=== PATIENT | female | born 1955 | race Caucasian/White ===

== ENCOUNTER → 2020-09-22 09:49 | Outpatient (BNVA) | payer MEDICAID, SELFPAY | PROVIDERS: PCP Internal Medicine Geriatric Medicine; Referring Provider Internal Medicine Geriatric Medicine; Visit Provider Student in an Organized Health Care Education/Training Program | DX: R76.8 Other specified abnormal immunological findings in serum (principal); M25.50 Pain in unspecified joint | CPT/HCPCS: 99202 ==

== ENCOUNTER 2020-09-24 09:03 | Outpatient (REF) | payer MEDICAID, SELFPAY ==
--- NOTE | 2020-09-24 09:10 | XR_ITS ---
EXAMINATION: BILATERAL HANDS. CLINICAL INFORMATION: Bilateral hand pain. COMPARISON: None TECHNIQUE: 4 views each hand. FINDINGS: RIGHT HAND: There is no visible acute fracture, dislocation or subluxation seen. The soft tissues are normal. LEFT HAND: There is no visible acute fracture, dislocation or subluxation seen. There is no abnormal joint effusion. No bony erosive changes. XR/XR hand wrist LT IMPRESSION: Unremarkable bilateral hand exam.
--- NOTE | 2020-09-24 09:10 | XR_ITS ---
EXAMINATION: BILATERAL HANDS. CLINICAL INFORMATION: Bilateral hand pain. COMPARISON: None TECHNIQUE: 4 views each hand. FINDINGS: RIGHT HAND: There is no visible acute fracture, dislocation or subluxation seen. The soft tissues are normal. LEFT HAND: There is no visible acute fracture, dislocation or subluxation seen. There is no abnormal joint effusion. No bony erosive changes. XR/XR hand wrist RT IMPRESSION: Unremarkable bilateral hand exam.
--- NOTE | 2020-09-24 09:10 | XR_ITS ---
EXAMINATION: XR THORACOLUMBAR SPINE CLINICAL INFORMATION: Low back pain. COMPARISON: None TECHNIQUE: 3 views. FINDINGS: There is maintained thoracic kyphosis. There is minimal dextroscoliosis mid dorsal spine. No intrinsic bony abnormality. The disc heights and neural foramina are well maintained. The endplates and posterior elements are normal. No fracture or subluxation. The surrounding prevertebral soft tissues are unremarkable. XR/XR thoracic spine 2V IMPRESSION: No compression fractures or subluxations are identified. The disc spaces are preserved. No endplate changes are seen. The prevertebral soft tissues are normal. The foramina are patent.
[2020-09-24 10:22] LABS: MANUAL DIFF FLAG NO
[2020-09-24 10:32] LABS: Basophils Absolute Auto 0.1 X10*3/uL (0.0-0.2); Basophils Percent Auto 1.4 % (0-2); Eosinophils Absolute Auto 0.2 X10*3/uL (0.0-0.4); Eosinophils Percent Auto 3.3 % (0-4); Hematocrit 39.7 % (37-47); Imm Gran Abs Auto 0.01 X10*3/uL (0.00-0.03); Imm Gran Pct Auto 0.2 % (0.0-0.4); Lymphocytes Absolute Auto 1.8 X10*3/uL (1.2-4.9); Lymphocytes Percent Auto 37.5 % (20-40); Mean Corpuscular HGB Conc 32.7 g/dl (31.0-35.0); Mean Corpuscular Hemoglobin 30.2 pg (27.0-33.0); Mean Corpuscular Volume 92.1 fL (80-98); Mean Platelet Volume 11.3 fL (9.4-12.3); Monocytes Absolute Auto 0.4 X10*3/uL (0.1-1.2); Monocytes Percent Auto 8.4 % (2-11); Neutrophils Absolute Auto 2.4 X10*3/uL (2.0-8.3); Neutrophils Percent Auto 49.2 % (45-73); Platelet Count 222 X10*3/uL (160-400); Red Blood Count 4.31 X10*6/uL (4.20-5.50); Red Cell Distribution Width 14.2 % (11.0-16.0); White Blood Count 4.9 X10*3/uL (4.8-10.8)
[2020-09-24 10:52] LABS: Glucose Urine UA NEG (NEG); Leukocyte Esterase Urine NEG (NEG); Nitrite Urine NEG (NEG); Urine Blood NEG (NEG); Urine Ketones NEG (NEG); Urine Protein NEG (NEG-TRACE)
[2020-09-24 10:55] LABS: Appearance Urine CLEAR; Color Urine YELLOW
[2020-09-24 11:00] LABS: Mucus Urine TRACE /LPF; RBC Urine 0-2 /HPF (0); Renal Epithelial Cells Urine TRACE /LPF; Squamous Epithelial Cell Urine TRACE /LPF; WBC Urine 0-2 /HPF (0-4)
[2020-09-24 11:11] LABS: Erythrocyte Sedimentation Rate 9 MM/HR (0-20)
[2020-09-24 11:13] LABS: Alanine Aminotransferase 31 U/L (0-31); Albumin Level 4.2 g/dL (3.5-5.0); Alkaline Phosphatase 67 U/L (39-117); Anion Gap 9 (12-20); Aspartate Amino Transferase 22 U/L (5-31); Bilirubin Total 0.8 mg/dL (0.0-1.0); Blood Urea Nitrogen 12 mg/dL (9-16); C Reactive Protein 0.13 mg/dL (< or = 0.50); Calcium 8.7 mg/dL (8.4-10.2); Carbon Dioxide 28 mmol/L (22-29); Chloride 107 mmol/L (96-108); Estimated Glomerular Filt Rate > 60; Glucose Random 104 mg/dL (60-115); Potassium 4.2 mmol/l (3.3-5.1); Rheumatoid Factor < 15.0 IU/mL (<15.0); Sodium 140 mmol/L (135-145); Total Protein 7.4 g/dL (6.5-8.0)
[2020-09-24 11:34] LABS: Thyroid Stimulating Hormone 1.17 mIU/mL (0.32-4.0)
[2020-09-25 11:42] LABS: Thyroglobulin Antibodies 1 IU/mL (< or = 1); Thyroid Peroxidase Antibodies 8 IU/mL (<9)
[2020-09-25 13:11] LABS: Anti DNA DS Antibody 9 IU/mL; Antibody to SS-A Antigen <1.0 NEG AI (<1.0 NEG); Antibody to SS-B Antigen <1.0 NEG AI (<1.0 NEG); SM/Ribonucleoprotein Ab <1.0 NEG AI (<1.0 NEG); Smith Protein <1.0 NEG AI (<1.0 NEG)
[2020-09-27 14:37] LABS: Complement C3 119 mg/dL (83-193)
[2020-09-28 00:17] LABS: Cyclic Citrullinated Peptide <16 UNITS
== END 2020-09-24 09:04 | disposition home or self-care (01) ==
LOC: HO.LAB 09:03
PROVIDERS: PCP Internal Medicine Geriatric Medicine; Visit Provider Student in an Organized Health Care Education/Training Program
DX: M25.50 Pain in unspecified joint (principal); R76.8 Other specified abnormal immunological findings in serum
CPT/HCPCS: 36415; 72070; 73110; 73130; 80053; 81001; 84443; 85025; 85652; 86038; 86039; 86140; 86160; 86200; 86225; 86235; 86376; 86431; 86800

== ENCOUNTER → 2020-11-10 09:26 | Outpatient (BNVA) | payer MEDICAID, SELFPAY | PROVIDERS: PCP Internal Medicine Geriatric Medicine; Referring Provider Internal Medicine Geriatric Medicine; Visit Provider Student in an Organized Health Care Education/Training Program | DX: Z76.89 Persons encountering health services in other specified circumstances (principal) ==

== ENCOUNTER 2021-03-18 12:11 | Outpatient (REF) | payer MEDICAID, SELFPAY ==
--- NOTE | ~2021-03-18 | XR_ITS ---
EXAMINATION: XR CERVICAL SPINE CLINICAL INFORMATION: Cervicalgia COMPARISON: None TECHNIQUE: 4 views FINDINGS: Straightening of the cervical curvature. Mild anterolisthesis of C4 on C5. No evidence of acute fracture. Mild cervical spondylosis including mild disc degeneration at C3-C4, C4-C5, C5-C6, C6-C7. Multilevel mild facet degeneration. Base of the dens appears intact. No suspicious findings in the lung apices. XR/XR cervical spine 3V IMPRESSION: Mild cervical spondylosis. No evidence of acute fracture.
== END 2021-03-18 12:12 | disposition home or self-care (01) ==
LOC: HO.XRAY 12:11
PROVIDERS: PCP Internal Medicine Geriatric Medicine; Visit Provider Emergency Medicine
DX: M54.2 Cervicalgia (principal)
CPT/HCPCS: 72040

== ENCOUNTER 2021-05-11 10:12 | Outpatient (REF) | payer MEDICAID, SELFPAY ==
--- NOTE | ~2021-05-11 | XR_ITS ---
EXAMINATION: XR WRIST, RIGHT XR WRIST, LEFT CLINICAL INFORMATION: Bilateral wrist pain COMPARISON: None TECHNIQUE: 3 views each wrist FINDINGS: Right Wrist: There is no visible acute fracture, dislocation or subluxation. No bony erosive changes seen. The carpometacarpal and intercarpal joint spaces are maintained normal. The radiocarpal joint space is normal as well. The soft tissues are unremarkable. Left Wrist: There is no visible acute fracture, dislocation or subluxation. The intercarpal and carpometacarpal joint spaces are maintained normal. The radiocarpal joint space is normal as well. XR/XR wrist RT 2V IMPRESSION: Unremarkable bilateral wrist exam. No bony erosive changes, fracture or subluxation.
--- NOTE | ~2021-05-11 | XR_ITS ---
EXAMINATION: XR WRIST, RIGHT XR WRIST, LEFT CLINICAL INFORMATION: Bilateral wrist pain COMPARISON: None TECHNIQUE: 3 views each wrist FINDINGS: Right Wrist: There is no visible acute fracture, dislocation or subluxation. No bony erosive changes seen. The carpometacarpal and intercarpal joint spaces are maintained normal. The radiocarpal joint space is normal as well. The soft tissues are unremarkable. Left Wrist: There is no visible acute fracture, dislocation or subluxation. The intercarpal and carpometacarpal joint spaces are maintained normal. The radiocarpal joint space is normal as well. XR/XR wrist LT 2V IMPRESSION: Unremarkable bilateral wrist exam. No bony erosive changes, fracture or subluxation.
[2021-05-11 11:32] LABS: MANUAL DIFF FLAG NO
[2021-05-11 11:40] LABS: Glucose Urine UA NEG (NEG); Leukocyte Esterase Urine NEG (NEG); Nitrite Urine NEG (NEG); Urine Blood TRACE (NEG); Urine Ketones NEG (NEG); Urine Protein NEG (NEG-TRACE)
[2021-05-11 11:41] LABS: Appearance Urine CLEAR; Color Urine YELLOW
[2021-05-11 11:44] LABS: Basophils Absolute Auto 0.1 X10*3/uL (0.0-0.2); Basophils Percent Auto 1.3 % (0-2); Eosinophils Absolute Auto 0.2 X10*3/uL (0.0-0.4); Eosinophils Percent Auto 2.9 % (0-4); Hematocrit 41.1 % (37-47); Hemoglobin 13.5 g/dl (12.0-16.0); Imm Gran Abs Auto 0.01 X10*3/uL (0.00-0.03); Imm Gran Pct Auto 0.2 % (0.0-0.4); Lymphocytes Absolute Auto 2.1 X10*3/uL (1.2-4.9); Lymphocytes Percent Auto 38.3 % (20-40); Mean Corpuscular HGB Conc 32.8 g/dl (31.0-35.0); Mean Corpuscular Hemoglobin 30.2 pg (27.0-33.0); Mean Corpuscular Volume 91.9 fL (80-98); Monocytes Absolute Auto 0.5 X10*3/uL (0.1-1.2); Monocytes Percent Auto 8.2 % (2-11); Neutrophils Absolute Auto 2.7 X10*3/uL (2.0-8.3); Neutrophils Percent Auto 49.1 % (45-73); Platelet Count 243 X10*3/uL (160-400); Red Blood Count 4.47 X10*6/uL (4.20-5.50); Red Cell Distribution Width 14.7 % (11.0-16.0); White Blood Count 5.5 X10*3/uL (4.8-10.8)
[2021-05-11 11:49] LABS: Hyaline Casts Urine 0-2 /LPF; Squamous Epithelial Cell Urine TRACE /LPF; WBC Urine 0-2 /HPF (0-4)
[2021-05-11 12:09] LABS: Alanine Aminotransferase 30 U/L (0-31); Albumin Level 4.3 g/dL (3.5-5.0); Alkaline Phosphatase 79 U/L (39-117); Anion Gap 11 (12-20); Aspartate Amino Transferase 23 U/L (5-31); Bilirubin Total 0.9 mg/dL (0.0-1.0); Blood Urea Nitrogen 12 mg/dL (9-16); C Reactive Protein 0.19 mg/dL (< or = 0.50); Calcium 9.6 mg/dL (8.4-10.2); Carbon Dioxide 27 mmol/L (22-29); Chloride 107 mmol/L (96-108); Estimated Glomerular Filt Rate > 60; Glucose Random 100 mg/dL (60-115); Potassium 4.5 mmol/L (3.3-5.1); Sodium 140 mmol/L (135-145); Total Protein 7.8 g/dL (6.5-8.0)
[2021-05-11 13:39] LABS: Erythrocyte Sedimentation Rate 10 MM/HR (0-20)
[2021-05-12 11:32] LABS: Complement C3 129 mg/dL (83-193)
[2021-05-12 11:56] LABS: Anti DNA DS Antibody 20 IU/mL; SM/Ribonucleoprotein Ab <1.0 NEG AI (<1.0 NEG); Smith Protein <1.0 NEG AI (<1.0 NEG)
== END 2021-05-11 10:13 | disposition home or self-care (01) ==
LOC: HO.LAB 10:12
PROVIDERS: PCP Internal Medicine Geriatric Medicine; Visit Provider Student in an Organized Health Care Education/Training Program
DX: R76.8 Other specified abnormal immunological findings in serum (principal); M25.50 Pain in unspecified joint
CPT/HCPCS: 36415; 73100; 80053; 81001; 85025; 85652; 86140; 86160; 86225; 86235; 99212

== ENCOUNTER 2021-06-01 09:00 | Outpatient (RCR) | payer MEDICAID, SELFPAY | END 2021-06-02 08:00 | disposition home or self-care (01) | LOC: HO.PT 09:00 | PROVIDERS: PCP Internal Medicine Geriatric Medicine; Visit Provider Internal Medicine Geriatric Medicine | DX: M54.2 Cervicalgia (principal); M54.5 Low back pain | CPT/HCPCS: 97012; 97110; 97112; 97140; 97162 ==

== ENCOUNTER 2021-06-30 07:26 | Outpatient (REF) | payer MEDICAID, SELFPAY ==
--- NOTE | ~2021-06-30 | MM_ITS ---
EXAMINATION: MM SCREENING DIGITAL BREAST TOMOSYNTHESIS, BILATERAL CLINICAL INFORMATION: Screening. Asymptomatic. The lifetime risk of breast cancer based on the Tyrer-Cuzick Model is 5%. COMPARISON: Mammography: 04/13/2020, 05/20/2019, 05/02/2018 TECHNIQUE: Digital breast tomosynthesis is performed in both the craniocaudal and mediolateral oblique views along with computer-aided detection (CAD). Synthesized 2D images are generated from the tomosynthesis. FINDINGS: The breasts are heterogeneously dense, which may obscure small masses (ACR BI-RADS breast composition Category c). There are no significant masses, abnormal calcifications, or other abnormalities. MM/MM tomosynthesis screening BI IMPRESSION: No mammographic evidence of malignancy. ASSESSMENT: BI-RADS 1: Negative RECOMMENDATION: Routine annual mammography screening. This patient's information was entered into a reminder system with a target due date for their next mammogram.
== END 2021-06-30 07:27 | disposition home or self-care (01) ==
LOC: HO.MAMMO 07:26
PROVIDERS: Visit Provider Internal Medicine Geriatric Medicine
DX: Z12.31 Encounter for screening mammogram for malignant neoplasm of breast (principal)
CPT/HCPCS: 77063; 77067

== ENCOUNTER 2021-07-22 10:13 | Outpatient (REF) | payer MEDICAID, SELFPAY ==
--- NOTE | ~2021-07-22 | XR_ITS ---
EXAMINATION: XR FOOT, BILATERAL CLINICAL INFORMATION: Bilateral foot pain. COMPARISON: Bilateral ankles 06/11/2020. TECHNIQUE: 3 views each foot. FINDINGS: No significant bone, joint or soft tissue abnormality is seen. XR/XR foot RT min 3V IMPRESSION: An etiology for the patient's bilateral foot pain has not been found.
--- NOTE | ~2021-07-22 | XR_ITS ---
EXAMINATION: XR FOOT, BILATERAL CLINICAL INFORMATION: Bilateral foot pain. COMPARISON: Bilateral ankles 06/11/2020. TECHNIQUE: 3 views each foot. FINDINGS: No significant bone, joint or soft tissue abnormality is seen. XR/XR foot LT min 3V IMPRESSION: An etiology for the patient's bilateral foot pain has not been found.
== END 2021-07-22 10:14 | disposition home or self-care (01) ==
LOC: HO.XRAY 10:13
PROVIDERS: PCP Internal Medicine Geriatric Medicine; Visit Provider Internal Medicine Geriatric Medicine
DX: M79.671 Pain in right foot (principal); M79.672 Pain in left foot
CPT/HCPCS: 73630

== ENCOUNTER 2021-08-08 10:15 | Outpatient (REF) | payer MEDICAID, SELFPAY ==
[2021-08-10 13:12] LABS: H Pylori Breath Test Positive (Negative)
== END 2021-08-08 10:16 | disposition home or self-care (01) ==
LOC: CF 10:15
PROVIDERS: Visit Provider Physician Assistant
DX: K21.9 Gastro-esophageal reflux disease without esophagitis (principal); K58.9 Irritable bowel syndrome, unspecified; Z87.891 Personal history of nicotine dependence
CPT/HCPCS: 36415; 83013; 99202; 99212

== ENCOUNTER → 2021-08-08 10:15 | Outpatient (BNVA) | payer MEDICAID, SELFPAY | PROVIDERS: PCP Internal Medicine Geriatric Medicine; Referring Provider Internal Medicine Geriatric Medicine; Visit Provider Physician Assistant | DX: K21.9 Gastro-esophageal reflux disease without esophagitis (principal); K58.9 Irritable bowel syndrome, unspecified | CPT/HCPCS: 99212 ==

== ENCOUNTER → 2022-02-06 09:36 | Outpatient (BNVA) | payer MEDICAID, SELFPAY | PROVIDERS: PCP Internal Medicine Geriatric Medicine; Referring Provider Internal Medicine Geriatric Medicine; Visit Provider Physician Assistant | DX: Z13.89 Encounter for screening for other disorder (principal) ==

== ENCOUNTER 2022-04-18 11:04 | Outpatient (REF) | payer MEDICAID, SELFPAY ==
--- NOTE | ~2022-04-18 | MM_ITS ---
EXAMINATION: BONE DENSITOMETRY CLINICAL INDICATION: Menopause. COMPARISON: Previous BD dated 11/16/2016 and baseline BD dated 04/05/2010. TECHNIQUE: Using a [employer] DXA System (software version: 13.1) manufactured by [employer], dual-energy x-ray absorptiometry was performed of the lumbar spine and left hip. The images are of good technical quality. Summary results are attached. FINDINGS: AP SPINE L1-L4: Current: BMD 0.921 g/cm2, Z-score -0.2, T-score -2.2, osteopenia, 4.4% increase from previous, 1.4% decrease from baseline (<5% change is not significant). Prior: BMD 0.882 g/cm2. Baseline: BMD 0.934 g/cm2. LEFT FEMUR, NECK: Current: BMD 0.753 g/cm2, Z-score -0.3, T-score -2.0, osteopenia. Prior: BMD 0.706 g/cm2. Baseline: BMD 0.765 g/cm2. LEFT FEMUR, TOTAL: Current: BMD 0.821 g/cm2, Z-score 0.0, T-score -1.5, osteopenia, 2.5% decrease from previous, 9.6% decrease from baseline (<5% change is not significant). Prior: BMD 0.842 g/cm2. Baseline: BMD 0.908 g/cm2. IDENTIFIED RISK FACTORS: Menopause, osteoporosis. HISTORY OF FRACTURE: None listed. MEDICATIONS: Calcium, vitamin D. MM/XR DEXA axial skeleton IMPRESSION: 1. DIAGNOSIS: Osteopenia based on the lowest T-score value of -2.2 in the lumbar spine applying World Health Organization criteria. 2. 10-YEAR FRACTURE RISK PREDICTION, FRAX: Major osteoporotic fracture (clinical spine, forearm, hip or shoulder) 6.1%. Hip fracture 1.0%. 3. Treatment Recommendations: NOF guidelines recommend consideration for treatment in postmenopausal women and men age 50 and older presenting with the following: -A hip or vertebral (clinical or morphometric) fracture. -T-score less than or equal to -2.5 at the femoral neck or spine after appropriate evaluation to exclude secondary causes. -Low bone mass at the hip or spine and a 10-year fracture probability by FRAX of greater than or equal to 3% for hip fracture or greater than or equal to 20% for major osteoporotic fracture based on the [place] adapted WHO algorithm. 4. Other Recommendations: All treatment decisions require clinical judgment and consideration of individual patient factors, including patient preferences, comorbidities, previous drug use, risk factors not captured in the FRAX model (e.g. frailty, falls, vitamin D deficiency, increased bone turnover, interval significant decline in bone density) and possible under or overestimation of fracture risk by FRAX. Additional medical evaluation for secondary cause of low bone mineral density may be appropriate. FUTURE SCAN RECOMMENDATION: People with diagnosed cases of osteoporosis or at high risk for fracture should have regular bone mineral density tests. For patients eligible for Medicare, routine testing is allowed once every 2 years. The testing frequency can be increased to one year for patients who have rapidly progressing disease, those who are receiving or discontinuing medical therapy to restore bone mass, or have additional risk factors.
== END 2022-04-18 11:05 | disposition home or self-care (01) ==
LOC: HO.MAMMO 11:04
PROVIDERS: Visit Provider Advanced Practice Midwife
DX: Z13.820 Encounter for screening for osteoporosis (principal); N95.9 Unspecified menopausal and perimenopausal disorder; Z78.0 Asymptomatic menopausal state
CPT/HCPCS: 77080

== ENCOUNTER 2022-08-01 12:16 | Outpatient (REF) | payer MEDICARE, MEDICAID, SELFPAY ==
--- NOTE | ~2022-08-01 | XR_ITS ---
EXAMINATION: XR BILATERAL HIP SERIES CLINICAL INFORMATION: Pain. COMPARISON: Pelvis x-ray August 2016. X-ray the left hip October 2007. TECHNIQUE: AP and lateral views of the right and left hips. FINDINGS: Right Hip: The hip joint and surrounding bone and soft tissues are normal. Left Hip: The hip joint and surrounding bone and soft tissues are normal. XR/XR hip RT min 2V IMPRESSION: Normal x-ray series of both hips.
--- NOTE | ~2022-08-01 | XR_ITS ---
EXAMINATION: XR BILATERAL HIP SERIES CLINICAL INFORMATION: Pain. COMPARISON: Pelvis x-ray August 2016. X-ray the left hip October 2007. TECHNIQUE: AP and lateral views of the right and left hips. FINDINGS: Right Hip: The hip joint and surrounding bone and soft tissues are normal. Left Hip: The hip joint and surrounding bone and soft tissues are normal. XR/XR hip LT min 2V IMPRESSION: Normal x-ray series of both hips.
== END 2022-08-01 12:17 | disposition home or self-care (01) ==
LOC: HO.XRAY 12:16
PROVIDERS: PCP Internal Medicine Geriatric Medicine; Visit Provider Internal Medicine Geriatric Medicine
DX: M25.551 Pain in right hip (principal); M25.552 Pain in left hip
CPT/HCPCS: 73502

== ENCOUNTER → 2022-10-16 09:11 | Outpatient (BNVA) | payer MEDICARE, MEDICAID, SELFPAY | PROVIDERS: PCP Internal Medicine Geriatric Medicine; Visit Provider Physician Assistant | DX: Z11.0 Encounter for screening for intestinal infectious diseases (principal) | CPT/HCPCS: 83013; 99211 ==

== ENCOUNTER 2022-10-16 16:22 | Outpatient (REF) | payer MEDICARE, MEDICAID, SELFPAY ==
[2022-10-17 11:43] LABS: H Pylori Breath Test Positive (Negative)
== END 2022-10-16 16:23 | disposition home or self-care (01) ==
LOC: HO.LNP 16:22
PROVIDERS: Visit Provider Physician Assistant
DX: Z13.89 Encounter for screening for other disorder (principal)
CPT/HCPCS: 83013

== ENCOUNTER → 2022-10-30 08:34 | Outpatient (BNVA) | payer OTHER, MEDICAID, SELFPAY | PROVIDERS: PCP Internal Medicine Geriatric Medicine; Visit Provider Physician Assistant | DX: K21.9 Gastro-esophageal reflux disease without esophagitis (principal); K58.9 Irritable bowel syndrome, unspecified; A04.8 Other specified bacterial intestinal infections | CPT/HCPCS: 99212 ==

== ENCOUNTER → 2022-12-25 09:07 | Outpatient (BNVA) | payer OTHER, SELFPAY | PROVIDERS: PCP Internal Medicine Geriatric Medicine; Visit Provider Physician Assistant | DX: A04.8 Other specified bacterial intestinal infections (principal) | CPT/HCPCS: 99212 ==

== ENCOUNTER → 2023-02-05 09:32 | Outpatient (BNVA) | payer OTHER, SELFPAY | PROVIDERS: PCP Internal Medicine Geriatric Medicine; Referring Provider Internal Medicine Geriatric Medicine; Visit Provider Physician Assistant | DX: K21.9 Gastro-esophageal reflux disease without esophagitis (principal); A04.8 Other specified bacterial intestinal infections; R19.4 Change in bowel habit | CPT/HCPCS: 99212 ==

== ENCOUNTER 2023-05-01 11:46 | Outpatient (REF) | payer OTHER, SELFPAY ==
--- NOTE | ~2023-05-01 | MM_ITS ---
EXAMINATION: MM SCREENING DIGITAL BREAST TOMOSYNTHESIS, BILATERAL CLINICAL INFORMATION: Screening. Asymptomatic. The lifetime risk of breast cancer based on the Tyrer-Cuzick Model is 5%. COMPARISON: Mammography: 06/30/2021, 04/13/2020, 05/20/2019 TECHNIQUE: Digital breast tomosynthesis is performed in both the craniocaudal and mediolateral oblique views along with computer-aided detection (CAD). Synthesized 2D images are generated from the tomosynthesis. FINDINGS: The breasts are heterogeneously dense, which may obscure small masses (ACR BI-RADS breast composition Category c). There are no significant masses, abnormal calcifications, or other abnormalities. There is a fine fibronodular parenchymal pattern is similar to prior exams. Scattered minor asymmetries are stable. No developing density or architectural abnormality. The axilla and skin contours are unremarkable. No significant changes. MM/MM tomosynthesis screening BI IMPRESSION: No mammographic evidence of malignancy. ASSESSMENT: BI-RADS 2: Benign RECOMMENDATION: Routine annual mammography screening. This patient's information was entered into a reminder system with a target due date for their next mammogram.
== END 2023-05-01 11:47 | disposition home or self-care (01) ==
LOC: HO.MAMMO 11:46
PROVIDERS: PCP Internal Medicine Geriatric Medicine; Visit Provider Advanced Practice Midwife
DX: Z12.31 Encounter for screening mammogram for malignant neoplasm of breast (principal)
CPT/HCPCS: 77063; 77067

== ENCOUNTER 2023-08-31 06:24 | Day surgery (SDC) | payer OTHER, SELFPAY ==
[2023-08-29 07:20] VITALS: BMI 21.9
--- NOTE | 2023-08-31 06:32 | MHC.SHP ---
Documented by User: Teri Martin MD 08/31/23 07:42 Pre-Procedural Eval Section A Date of Service: 08/31/23 Section B Chief Complaint: Gastro-esophageal reflux disease without esophagit Details of Present Illness: altered bowel habit Relevant Family History (Specify if Yes): No Relevant Social History: None Present Medications: see Short Stay Collaborative assessment Medical History: Significant History (h pylori) History of Previous Operations: Relevant previous surgery/procedure and date(s) (History of esophagogastroduodenoscopy (EGD) History of eye surgery Hx laparoscopic cholecystectomy Hx of colonoscopy) Allergies: Allergies Allergy/AdvReac Type Severity Reaction Status Date / Time No Known Allergies Allergy Verified 02/05/23 09:38 Review of Systems Sugical H&P ROS: Negative: Constitution, Cardiovascular, Respiratory, Neurological, Psychiatric, Hem-Onc, Allergic/Immunologic, Gastrointestinal, Genitourinary, Musculoskeletal, Integumentary, Endocrine and Eyes/Ears/Nose/Throat Exam Surgical H&P Exam: Normal: HEENT, Normal: Heart, Normal: Lungs, Normal: Extremities, Normal: Abdomen, Normal: Skin and Normal: Neurological Plan Diagnosis/Plan: Unchanged I have reviewed the history and physical and performed a pertinent physical examination on my patient. No changes have occurred unless specified. Time Spent With Patient Time: Total time managing care of this patient today ____ minutes. Documented by User: Malinda Magallon MD 08/31/23 07:12 Pre-Procedural Eval Section A Date of Service: 08/31/23 Section B Chief Complaint: Gastro-esophageal reflux disease without esophagit
[2023-08-31] MEDS: Lactated Ringers 1,000 ML 100 ML IVCONT (07:01)
--- NOTE | 2023-08-31 07:12 | P.CONAN_ITS ---
[facility] Active Problems Active Problems: All Active Problems (Updated 02/06/23 @ 14:24 by Silvia Baltazar PA-C) Bowel habit changes (Acute) H. pylori infection (Acute) Encounter for screening colonoscopy (Acute) Irritable bowel (Acute) Acid reflux (Acute) Chronic constipation (Acute) Polyarthralgia (Acute) SILKE positive (Acute) Past Medical History Medical History No pertinent past medical history Family History Family History Mother HTN (hypertension) Brother HTN (hypertension) Sister HTN (hypertension) Surgical History Surgical History History of esophagogastroduodenoscopy (EGD) Hx of colonoscopy History of eye surgery Hx laparoscopic cholecystectomy History of Problems with Anesthesia: No Social History Social History Household Members: Spouse Are you a primary livestock caretaker to a significant other at home: No Alcohol intake: current Patient Tobacco Use Status: Former Tobacco user Years Smoked: 10 Have you been hit, kicked, punched, or otherwise hurt by someone within the past year? If so, by whom?: No Are you DNR?: No Advance Directives: No Advance Directives Information Provided: Yes Recently lost weight without trying: No Eating poorly because of decreased appetite: No Nutrition Risks: No Nutritional Risk Patient : No Current occupational status: employed Current occupation: [employer] Allergies Allergy/AdvReac Type Severity Reaction Status Date / Time No Known Allergies Allergy Verified 02/05/23 09:38 Active Medications: Current Medications Lactated Ringer's (Lr) 1,000 mls @ 100 mls/hr IVCONT .Q10H MASNI Last Admin: 08/31/23 07:01 Dose: 100 mls/hr Home Medications Medication Instructions Recorded Confirmed Last Taken Type ascorbate calcium (vitamin C) 500 500 mg PO DAILY 09/22/20 02/05/23 Unknown History mg tablet cholecalciferol (vitamin D3) 25 25 mcg PO DAILY 09/22/20 02/05/23 Unknown History mcg (1,000 unit) capsule omega-3 fatty acids 1,000 mg 1,000 mg PO DAILY 09/22/20 02/05/23 Unknown History capsule Exam Exam Date and Time: August 31, 2023 0712 Height,Weight and Vital Signs: Height 5 ft 2 in Weight 54.431 kg Airway Mallampati Class: II TM Dist: >3cm Neck ROM: Full Loose/Missing/Broken Teeth: No Heart: RRR Lungs: CTA Assessment and Plan Assessment Anesthesia Assessment: Anesthesia Plan Discussed and Chart Reviewed Final Anesthetic Review History of Problems with Anesthesia: No NPO: Yes ASA Class: II Final Preanesthetic Review: Meds/Allgs Chart Reviewed, Consent Obtained/Reviewed and Anes Risks/Benef Reviewed Patient Risk: Low Procedure Risk: Intermediate Anesthetic Plan Anesthetic Plan: MAC: Disposition: Standard PACU
--- NOTE | 2023-08-31 07:43 | W.PM.OPN ---
Operative Note Operative Note Date of Service: 08/31/23 Narrative: Operative Information Procedure Description: EGD, Colonoscopy Indication: GERD< altered bowel habits Anesthesia: MAC FLEXIBLE TRANSORAL UPPER GASTROINTESTINAL ENDOSCOPY AND COLONOSCOPY PROCEDURE NOTE UPPER ENDOSCOPY Consent: Indications for the procedure and potential complications of bleeding, perforation, reaction to medications and missed diagnosis were discussed with the patient and informed consent was obtained. Instrument: Olympus GIF H 190 J mid size upper endoscope Monitoring: Vital signs and clinical assessment, continuous EKG monitoring, Pulse oximetry, Carbon Dioxide monitoring and blood pressure monitoring were done throughout the procedure. Procedure: The patient was placed in the left lateral decubitis position and pre-procedure medications were administered and a bite block was placed. The endoscope was inserted into the mouth and advanced under direct vision to the third part of duodenum. A careful inspection was made as the upper endoscope was withdrawn including a retroflexed examination of the proximal stomach; Findings and interventions are described below. Findings: Larynx:normal Esophagus: GE junction at 37 cm, diaphragm hiatus at 37 cm, bogginess and congestion at GEJ bx taken, also from distal and proximal esophagus. Some erythema noted at distal esophagus as well Stomach: Patchy erythema and atrophy eleni at antrum. Biopsies were obtained. Grade 2 flap valve on retroflexed examination of the cardia. bx also taken for H pylori culture and sensitivity. Duodenum: Normal bulb and descending duodenum, bx taken Intervention: Biopsies as noted above COLONOSCOPY Instrument: Olympus variable stiffness pediatric scope 190L Colonoscopy Monitoring: Vital signs and clinical assessment, continuous EKG monitoring, Pulse oximetry, Carbon Dioxide monitoring and blood pressure monitoring were done throughout the procedure. Colon withdrawal time was 10 minutes. Procedure: The patient was placed in the left lateral decubitis position and pre-procedure medications were administered. After a digital rectal examination of the ano-rectum, the video colonoscope was inserted into the rectum and advanced through the colon to the cecum/TI. The colonoscope was slowly withdrawn in a retrograde panoramic fashion and the colon mucosa was carefully examined including a retroflexed view of the rectum. Findings and interventions are described below. Procedure Difficulty:easy Findings: Terminal Ileum-normal, bx taken - Random colon bx taken Cecum:normal Ascending Colon: 3-4 mm sessile polyp removed with Transverse Colon -normal Descending Colon:normal Sigmoid Colon: normal Rectum: Retroflexion with small internal hemorrhoids, grade I Anorectum - normal Colon preparation: [place] Bowel Preparation Scale Right colon; 3 Transverse colon: 3 Left colon; 3 (0 = Unprepared colon segment with mucosa not seen due to solid stool that cannot be cleared. 1 = Portion of mucosa of the colon segment seen, but other areas of the colon segment not well seen due to staining, residual stool and/or opaque liquid. 2 = Minor amount of residual staining, small fragments of stool and/or opaque liquid, but mucosa of colon segment seen well. 3 = Entire mucosa of colon segment seen well with no residual staining, small fragments of stool or opaque liquid) Impression and Post Procedure Diagnosis: Endoscopy Findings: esophagitis gastritis Colonoscopy Findings: polyp internal hemorrhoids Plan: Await Pathology results Repeat Colonoscopy in 5-7 years if adenomatous polyp, otherwise 10 yrs if hyperplastic or earlier if clinically indicated High fiber diet leaflet avoid straining at stool, epsom salts and sitz bath, anusol supps or cream await h pylori culture can consider increasing PPI dose Above findings were reviewed with the patient and relevant handouts were provided if indicated.
[2023-08-31 08:24] VITALS: BP 85/45; PULSE 61; RESP 12; TEMP 36.2; O2SAT 97
[2023-08-31 08:39] VITALS: BP 95/52; PULSE 61; RESP 14; O2SAT 97
[2023-08-31 08:54] VITALS: BP 97/67; PULSE 58; RESP 14; O2SAT 97
[2023-08-31 09:09] VITALS: BP 103/58; PULSE 64; RESP 16; TEMP 36.8; O2SAT 97
[2023-09-10 10:51] LABS: H Pylori Cult Source TISSUE
== END 2023-08-31 09:31 | disposition home or self-care (01) ==
PROVIDERS: PCP Internal Medicine Geriatric Medicine; Visit Provider Internal Medicine Gastroenterology
PROC: (CPT 45380; principal; 2023-08-31 07:30)
DX: R19.4 Change in bowel habit (principal); K63.5 Polyp of colon; K64.0 First degree hemorrhoids; K21.9 Gastro-esophageal reflux disease without esophagitis; K29.50 Unspecified chronic gastritis without bleeding; K20.80 Other esophagitis without bleeding; K44.9 Diaphragmatic hernia without obstruction or gangrene; Z79.899 Other long term (current) drug therapy; Z90.49 Acquired absence of other specified parts of digestive tract; Z87.891 Personal history of nicotine dependence
CPT/HCPCS: 45380; 43239; 36415; 87081; 88305; 88312; 88342

== ENCOUNTER → 2023-08-31 06:24 | Outpatient (BNV) | payer OTHER, SELFPAY | PROVIDERS: PCP Internal Medicine Geriatric Medicine; Visit Provider Internal Medicine Gastroenterology | DX: K21.9 Gastro-esophageal reflux disease without esophagitis (principal); D12.2 Benign neoplasm of ascending colon; K64.0 First degree hemorrhoids; K20.90 Esophagitis, unspecified without bleeding; K29.70 Gastritis, unspecified, without bleeding | CPT/HCPCS: 43239 ==

== ENCOUNTER 2023-09-04 07:58 | Outpatient (REF) | payer OTHER, SELFPAY ==
--- NOTE | ~2023-09-04 | XR_ITS ---
EXAMINATION: XR HIP SERIES, BILATERAL CLINICAL INFORMATION: Pain. COMPARISON: 09/04/2023 AP pelvis and left hip, 08/01/2022 bilateral hips, 04/07/2019 left hip, 09/05/2016 AP pelvis. TECHNIQUE: AP view of the pelvis and bilateral hips and lateral views of the right and left hips. FINDINGS: Moderate degenerative changes in the imaged lower lumbar spine. Right Hip: The hip joint space is maintained. Redemonstration of a tiny punctate calcification in the soft tissues lateral to the acetabulum. Minimal lateral acetabular hypertrophic change. Left Hip: The hip joint space is maintained. Minimal lateral acetabular hypertrophic change. XR/XR hip RT 1V IMPRESSION: Minimal degenerative changes in the bilateral hips. Additional imaging with CT scan or MRI should be considered for better visualization as these modalities are much more sensitive for detection of fracture or other underlying pathology.
--- NOTE | ~2023-09-04 | XR_ITS ---
EXAMINATION: XR HIP SERIES, BILATERAL CLINICAL INFORMATION: Pain. COMPARISON: 09/04/2023 AP pelvis and left hip, 08/01/2022 bilateral hips, 04/07/2019 left hip, 09/05/2016 AP pelvis. TECHNIQUE: AP view of the pelvis and bilateral hips and lateral views of the right and left hips. FINDINGS: Moderate degenerative changes in the imaged lower lumbar spine. Right Hip: The hip joint space is maintained. Redemonstration of a tiny punctate calcification in the soft tissues lateral to the acetabulum. Minimal lateral acetabular hypertrophic change. Left Hip: The hip joint space is maintained. Minimal lateral acetabular hypertrophic change. XR/XR hip LT min 2V IMPRESSION: Minimal degenerative changes in the bilateral hips. Additional imaging with CT scan or MRI should be considered for better visualization as these modalities are much more sensitive for detection of fracture or other underlying pathology.
== END 2023-09-04 07:59 | disposition home or self-care (01) ==
LOC: HO.HOSX 07:58
PROVIDERS: Visit Provider Orthopaedic Surgery
DX: M16.0 Bilateral primary osteoarthritis of hip (principal); Z79.899 Other long term (current) drug therapy
CPT/HCPCS: 73501; 73502; 99202

== ENCOUNTER 2023-09-04 09:14 | Outpatient (AMB) | payer OTHER, SELFPAY ==
--- NOTE | 2023-09-04 09:21 | A.OFFVIS_ITS ---
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 Patient reports pain has been present for many years however the past year her pain has been getting worse in her groin area. States right hip is the worse and will hear crunching sounds. Currently attends PT that seems to aggravate her pains. She has also been to acupuncture therapy which gave her minimal relief. The patient also reports intermittent weakness in her bilateral legs. She has tried Tylenol and anti-inflammatory medicines which gave her minimal relief. 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 ID#[id number] Allergies No Known Allergies Allergy (Verified 09/04/23 09:33) Medication List - Last Reconciled 09/04/23 by Syd Fu MD ascorbate calcium (vitamin C) 500 mg PO DAILY bisacodyl (Dulcolax (bisacodyl)) 10 mg (2 x 5 mg) PO ONCE 1 day cholecalciferol (vitamin D3) 25 mcg PO DAILY methylcellulose (laxative) (Citrucel) 500 mg PO BID omega-3 fatty acids 1,000 mg PO DAILY pantoprazole 20 mg PO QAM polyethylene glycol 3350 (Miralax) 238 grams PO ONCE 1 day PFS Medical History No pertinent past medical history Surgical History History of esophagogastroduodenoscopy (EGD) Hx of colonoscopy History of eye surgery Hx laparoscopic cholecystectomy Family History Mother HTN (hypertension) Brother HTN (hypertension) Sister HTN (hypertension) Social History Household Members: Spouse Are you a primary resident care coordinator to a significant other at home: No Alcohol intake: current Patient Tobacco Use Status: Former Tobacco user Years Smoked: 10 Current occupational status: employed 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 Physical Exam Const Other: Well-nourished well-developed very friendly female awake alert and oriented x3 in no acute distress Extrem Other: Bilateral lower extremity examination shows good capillary refill, no skin lesions noted, normal sensation light touch Right hip examination shows decreased range of motion when compared to her left hip, pain with range of motion, no tenderness over her bursa, increased pain with forward flexion and internal rotation Results Reviewed Results Reviewed: X-rays of the patient's bilateral hips taken today show mild diffuse joint space narrowing, no acute bony abnormalities Assessment & Plan Assessment & Plan (1) Left hip pain: Code(s): M25.552 - Pain in left hip (2) Right hip pain: Code(s): M25.551 - Pain in right hip Orders: Orders XR hip RT 1V Today M16.11 - Unilateral primary osteoarthritis, right hip MR hip RT wo con Today M25.551 - Pain in right hip XR hip LT min 2V Today M16.12 - Unilateral primary osteoarthritis, left hip Coding Level of Care Code New Pt Level 2 (12197) Diagnoses Left hip pain M25.552 Right hip pain M25.551
== END 2023-09-04 10:08 | disposition home or self-care (01) ==
PROVIDERS: PCP Internal Medicine Geriatric Medicine; Visit Provider Orthopaedic Surgery
DX: M25.552 Pain in left hip (principal); M25.551 Pain in right hip
CPT/HCPCS: 99202

== ENCOUNTER 2023-09-12 15:10 | Outpatient (AMB) | payer OTHER, SELFPAY ==
--- NOTE | 2023-09-12 15:16 | MHC.OFFVIS ---
Intake Intake Visit Reasons: s/p cOLO/egd; Dr. Martin Allergies No Known Allergies Allergy (Verified 09/04/23 09:33) Medication List - Last Reconciled 09/12/23 by Silvia Baltazar PA-C ascorbate calcium (vitamin C) 500 mg PO DAILY cholecalciferol (vitamin D3) 25 mcg PO DAILY methylcellulose (laxative) (Citrucel) 500 mg PO BID omega-3 fatty acids 1,000 mg PO DAILY pantoprazole 20 mg PO QAM HPI HPI Comments History of Present Illness Details A 68 y/o F- f/u after EGD and colonoscopy- she says she feels well Acid reflux is ok- pantoprazole 20mg and tums - break through acid-will to identify anything specific Her appetite is very good. She has normal bowel pattern Reviewed procedure report, pathology and recommendation No nausea, vomiting, hematemesis, hematochezia fever chills PFSH Medical History (Updated 09/13/23 @ 07:53 by Silvia Baltazar PA-C) No pertinent past medical history Surgical History (Updated 09/11/23 @ 14:13 by Yoly Garcia) History of esophagogastroduodenoscopy (EGD) Hx of colonoscopy History of eye surgery Hx laparoscopic cholecystectomy Family History Mother HTN (hypertension) Brother HTN (hypertension) Sister HTN (hypertension) Social History Household Members: Spouse Are you a primary inspector health care facilities to a significant other at home: No Alcohol intake: current Patient Tobacco Use Status: Former Tobacco user Years Smoked: 10 Current occupational status: employed 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 Review of Systems Const All systems reviewed & are unremarkable except as noted in HPI and below Card Denies chest pain and Denies dyspnea Resp Denies dyspnea GI Reports dyspepsia and Reports heartburn Physical Exam Const General: cooperative, healthy appearing, comfortable and no acute distress Orientation/consciousness: patient oriented x3 Limitations: language barrier (specifications checker device) Resp Effort & Inspection: normal respiratory effort and able to speak in complete sentences Skin General skin exam: no rashes or lesions noted Neuro General: patient oriented x3 Psych Appearance: grossly normal and well kempt Mental Status: mental status grossly normal Speech and movement: Normal speech and movement present and Clear speech present Affect: normal affect Attitude: cooperative Thought process: Normal thought process present Thought content: Normal thought content present Results Reviewed Results Reviewed: Endoscopy Findings: esophagitis gastritis Colonoscopy Findings: polyp internal hemorrhoids Plan: Await Pathology results Repeat Colonoscopy in 5-7 years if adenomatous polyp, otherwise 10 yrs if hyperplastic or earlier if clinically indicated High fiber diet leaflet avoid straining at stool, epsom salts and sitz bath, anusol supps or cream await h pylori culture can consider increasing PPI dose efrain: BowerYoly mcneal Age/Sex: 68/F Attending: Teri Martin MD : 1955 Submitted by: Teri Martin MD Copies to: MR #: [id number] Status: [facility] Collected: 08/31/23 Location: [facility] Received: 08/31/23 Diagnosis A. Duodenum, biopsy: Mild chronic duodenitis with patchy foveolar metaplasia and mild villous blunting in keeping with a peptic etiology. B. Stomach, biopsy: Gastric antral and body mucosa with mild chronic inactive gastritis; negative for Helicobacter pylori, intestinal metaplasia and dysplasia. C. Gastroesophageal junction, biopsy: Active erosive esophagitis and parakeratosis with reactive epithelial changes; negative for fungal organisms, intestinal metaplasia and dysplasia. D. Esophagus, distal, biopsy: Squamous mucosa with moderate active esophagitis, parakeratosis and reactive epithelial changes; negative for fungal organisms, intestinal metaplasia and dysplasia. E. Esophagus, proximal, biopsy: Squamous mucosa within normal limits; negative for fungal organisms, intestinal metaplasia and dysplasia. F. Terminal ileum, biopsy: Ileal mucosa within normal limits; negative for active or chronic ileitis. G. Colon, random, biopsy: Colonic mucosa within normal limits; negative for active, chronic or microscopic colitis. H. Colon, ascending, polypectomy: Clinically polypoid colonic mucosa noted; negative for a hyperplastic or neoplastic process. Clinical History Pre-Op Dx: Altered bowel habits Post-Op Dx: Gastritis, esophagitis, colon polyp, hemorrhoids Microscopic Description Microscopic sections reviewed. The special stain for PAS is negative for fungal organisms in parts C, D and E. Material Received A. Bx duodenum B. Bx stomach C. Bx GE junction D. Bx distal esophagus E. Bx proximal esophagus Patient: Yoly Bower Age/Sex: 68/F MR#: [id number] Page 1 of 2 Assessment & Plan Assessment & Plan (1) Acid reflux: Comment: Increase PPI to pantoprazole 40 mg daily, avoid culprits Code(s): K21.9 - Gastro-esophageal reflux disease without esophagitis Plan: Review reflux precautions Try to identify culprits (2) Colon polyps: Comment: Colon, random, biopsy: Colonic mucosa within normal limits; negative for active, chronic or microscopic colitis. H. Colon, ascending, polypectomy: Clinically polypoid colonic mucosa noted; negative for a hyperplastic or neoplastic process. Code(s): K63.5 - Polyp of colon Plan Repeat asymptomatic colonoscopy 10 years Reflux precautions reviewed Increase PPI Follow-up progress Medications: New pantoprazole 40 mg PO DAILY 30 days 30 tabs 4RF Patient Instructions: pantoprazole 40 mg avoid culprits HFD-Colonoscopy 10 years Coding Level of Care Code Est Pt Level 3 (21856) Diagnoses Acid reflux K21.9 Colon polyps K63.5 Time Spent (min) 25 Comment [id number]
== END 2023-09-12 15:37 | disposition home or self-care (01) ==
PROVIDERS: PCP Internal Medicine Geriatric Medicine; Visit Provider Physician Assistant
DX: K21.9 Gastro-esophageal reflux disease without esophagitis (principal); K63.5 Polyp of colon
CPT/HCPCS: 99213

== ENCOUNTER → 2023-09-12 15:10 | Outpatient (BNVA) | payer OTHER, SELFPAY | PROVIDERS: PCP Internal Medicine Geriatric Medicine; Visit Provider Physician Assistant | DX: K21.9 Gastro-esophageal reflux disease without esophagitis (principal); K63.5 Polyp of colon | CPT/HCPCS: 99212 ==

== ENCOUNTER 2023-10-05 | Outpatient (REF) | payer OTHER, SELFPAY ==
[2023-10-18 15:56] LABS: H Pylori Breath Test Negative (Negative)
== END 2023-10-05 00:01 | disposition home or self-care (01) ==
LOC: HO.LNP
PROVIDERS: Visit Provider Internal Medicine Gastroenterology
DX: A04.8 Other specified bacterial intestinal infections (principal)
CPT/HCPCS: 83013

== ENCOUNTER → 2023-10-05 08:37 | Outpatient (BNVA) | payer OTHER, SELFPAY | PROVIDERS: PCP Internal Medicine Geriatric Medicine; Visit Provider Internal Medicine Gastroenterology | DX: Z11.0 Encounter for screening for intestinal infectious diseases (principal) | CPT/HCPCS: 99211 ==

== ENCOUNTER 2023-10-16 09:35 | Outpatient (REF) | payer OTHER, SELFPAY ==
[2023-10-16 11:14] LABS: Appearance Urine Cloudy; Color Urine Yellow; Glucose Urine UA Negative (Negative); Leukocyte Esterase Urine Negative (Negative); Nitrite Urine Negative (Negative); Specific Gravity - Urine 1.015 (1.005-1.025); UMIC TRIGGER UACC YES; Urine Blood Trace (Negative); Urine Ketones Negative (Negative); Urine Protein Negative (Neg-Trace)
[2023-10-16 11:19] LABS: Bacteria Urine None Seen (None Seen); Hyaline Casts Urine 0-2 /LPF (0-2); RBC Urine 0-2 /HPF (0-2); WBC Urine 0-5 /HPF (0-5)
[2023-10-16 11:36] LABS: Anion Gap 10 (12-20); Blood Urea Nitrogen 18 mg/dL (9-16); Calcium 9.1 mg/dL (8.4-10.2); Carbon Dioxide 24 mmol/L (22-29); Chloride 110 mmol/L (96-108); Estimated Glomerular Filt Rate > 60; Glucose Random 66 mg/dL (60-115); Potassium 4.2 mmol/L (3.3-5.1); Sodium 140 mmol/L (135-145)
== END 2023-10-16 09:36 | disposition home or self-care (01) ==
LOC: HO.HHCL 09:35
PROVIDERS: Visit Provider Internal Medicine Geriatric Medicine
DX: N39.0 Urinary tract infection, site not specified (principal); R30.0 Dysuria; R31.9 Hematuria, unspecified
CPT/HCPCS: 36415; 80048; 81001

== ENCOUNTER 2023-10-22 07:32 | Outpatient (REF) | payer OTHER, SELFPAY ==
--- NOTE | ~2023-10-22 | MR_ITS ---
EXAMINATION: MR HIP WITHOUT CONTRAST, RIGHT CLINICAL INFORMATION: Right hip pain, weakness, instability. Groin pain. COMPARISON: Multiple priors, most recent right hip radiographs dated 09/04/2023. TECHNIQUE: MRI of the right hip was obtained using routine sequences on a high-field strength magnet. FINDINGS: ACETABULAR LABRUM: Linear fluid signal within the undersurface of the anterosuperior labrum (sagittal image 05/10). Additional degenerative signal throughout the remaining anterosuperior and lateral labrum. Tiny anterosuperior paralabral cyst measuring up to 0.4 cm. ARTICULAR CARTILAGE/BONE: Diffuse articular cartilage signal heterogeneity and surface irregularity with focal full-thickness loss at the anterosuperior acetabulum where there is subchondral cystic change and mild marrow edema. Small marginal osteophytes. No stress reaction, fracture, or avascular necrosis. No concerning lytic or blastic osseous lesion. Partially visualized mild left hip osteoarthritis. Degenerative disc disease and facet arthropathy within the lower lumbar spine. MUSCLES/TENDONS: Intact. JOINT FLUID/BURSA: Trace right hip joint effusion. INTRAPELVIC STRUCTURES: Unremarkable. MR/MR hip RT wo con IMPRESSION: 1. Nondisplaced undersurface tear of the anterosuperior labrum with degenerative signal throughout the remaining anterosuperior and lateral labrum. Tiny anterosuperior paralabral cyst measuring 0.4 cm. 2. [id number] right and mild left hip osteoarthritis. Trace right hip joint effusion. 3. No stress reaction, fracture, or avascular necrosis. 4. Degenerative disc disease and facet arthropathy within the lower lumbar spine.
== END 2023-10-22 07:33 | disposition home or self-care (01) ==
LOC: HO.MRI 07:32
PROVIDERS: PCP Internal Medicine Geriatric Medicine; Visit Provider Orthopaedic Surgery
DX: M25.551 Pain in right hip (principal)
CPT/HCPCS: 73721; 99212

== ENCOUNTER 2023-10-22 13:52 | Outpatient (AMB) | payer OTHER, SELFPAY ==
--- NOTE | 2023-10-22 13:59 | MHC.OFFVIS ---
Intake Vital Signs 10/22/23 14:01 Height 5 ft 1 in Weight 120 lb BMI 22.7 BP 117/74 Blood Pressure Location Lt brachial Position Sitting Pulse 77 Intake Visit Reasons: 6 week follow up Intake Note: patient follow up for acid reflex. Patient cc: constipation, and itching sensation in the whole body. Emergency Medical Technician Basic Required: Yes Emergency Medical Technician Basic Name: Lauren [id number] Accompanied by: Self / Same As Patient Allergies No Known Allergies Allergy (Verified 10/22/23 13:59) Medication List - Last Reconciled 10/22/23 by Silvia Baltazar PA-C ascorbate calcium (vitamin C) 500 mg PO DAILY cholecalciferol (vitamin D3) 25 mcg PO DAILY methylcellulose (laxative) (Citrucel) 500 mg PO BID omega-3 fatty acids 1,000 mg PO DAILY pantoprazole 40 mg PO DAILY 30 days HPI HPI Comments History of Present Illness Details A 68 y/o female f/u with acid reflux- seen previously- pantoprazole 40 mg- improved has much improved Dietary modifications- taking fiber Gave up coffee- would like to have an occasional cup. no further gas- has been feeling very well- No nausea, vomiting, hematemesis, acid reflux, abdominal pain fever or chills PFSH Medical History No pertinent past medical history Surgical History History of esophagogastroduodenoscopy (EGD) Hx of colonoscopy History of eye surgery Hx laparoscopic cholecystectomy Family History Mother HTN (hypertension) Brother HTN (hypertension) Sister HTN (hypertension) Social History Household Members: Spouse Are you a primary care specialist to a significant other at home: No Alcohol intake: current Patient Tobacco Use Status: Former Tobacco user Years Smoked: 10 Current occupational status: employed 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 Review of Systems Const All systems reviewed & are unremarkable except as noted in HPI and below Card Denies chest pain and Denies dyspnea Resp Denies dyspnea GI Denies abdominal pain and Denies heartburn Physical Exam Vital Signs: Last Vital Signs Pulse 77 10/22/23 14:01 BP 117/74 10/22/23 14:01 BMI result Body Mass Index 22.7 Const General: cooperative, healthy appearing, comfortable and no acute distress Orientation/consciousness: patient oriented x3 Limitations: language barrier Eyes Sclerae: sclerae normal Resp Effort & Inspection: normal respiratory effort and able to speak in complete sentences Skin General skin exam: no rashes or lesions noted Neuro General: patient oriented x3 Extrem General: Yes full ROM Psych Appearance: grossly normal and well kempt Mental Status: mental status grossly normal Speech and movement: Normal speech and movement present and Clear speech present Affect: normal affect Attitude: cooperative Thought process: Normal thought process present Thought content: Normal thought content present Assessment & Plan Assessment & Plan (1) Acid reflux: Comment: Pleasant, happy with results continue pantoprazole 40 mg daily, avoid culprits Code(s): K21.9 - Gastro-esophageal reflux disease without esophagitis Plan: she may try a decaf-coffee daily- Plan She will continue plan PPI QD Avoid culprits call with concerns Medications: Refilled pantoprazole 40 mg PO DAILY 30 days 30 tabs 4RF Patient Instructions: She will continue plan-she has done well dietary modifications PPI QD Avoid culprits call with concerns Coding Level of Care Code Est Pt Level 3 (01379) Diagnoses Acid reflux K21.9 Time Spent (min) 30 Comment [id number] interprter
[2023-10-22 14:01] VITALS: BP 117/74; PULSE 77; BMI 22.7
== END 2023-10-22 14:59 | disposition home or self-care (01) ==
PROVIDERS: PCP Internal Medicine Geriatric Medicine; Visit Provider Physician Assistant
DX: K21.9 Gastro-esophageal reflux disease without esophagitis (principal)
CPT/HCPCS: 99213

== ENCOUNTER 2023-11-06 13:07 | Outpatient (AMB) | payer OTHER, SELFPAY ==
[2023-11-06 13:27] VITALS: BMI 22.7
--- NOTE | 2023-11-06 13:27 | A.OFFVIS_ITS ---
Intake Vital Signs 11/06/23 13:27 Height 5 ft 1 in Weight 120 lb BMI 22.7 Intake Visit Reasons: ov- MRI Hip RT review Intake Note: Sonam 68 year old female presents today for an MRI review of right hip. The patient states that her right hip pain is achy in nature. Most of the pain is located within her right groin. She denies any constant pain. She also has intermittent weakness in her right leg which she notices mostly when she is getting out of a car. She has taken Tylenol which gives only mild relief. She wished to hold off on surgery if at all possible. Allergies No Known Allergies Allergy (Verified 11/06/23 13:27) Medication List - Last Reconciled 11/06/23 by Syd Fu MD ascorbate calcium (vitamin C) 500 mg PO DAILY cholecalciferol (vitamin D3) 25 mcg PO DAILY methylcellulose (laxative) (Citrucel) 500 mg PO BID omega-3 fatty acids 1,000 mg PO DAILY pantoprazole 40 mg PO DAILY 30 days PFSH Medical History No pertinent past medical history Surgical History History of esophagogastroduodenoscopy (EGD) Hx of colonoscopy History of eye surgery Hx laparoscopic cholecystectomy Family History Mother HTN (hypertension) Brother HTN (hypertension) Sister HTN (hypertension) Social History Household Members: Spouse Are you a primary critical care educator to a significant other at home: No Alcohol intake: current Patient Tobacco Use Status: Former Tobacco user Years Smoked: 10 Current occupational status: employed 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 Physical Exam Vital Signs: BMI result Body Mass Index 22.7 Const Other: Well-nourished well-developed very friendly female awake alert and oriented x3 in no acute distress Extrem Other: Bilateral lower extremity examination shows good capillary refill, no skin lesions noted, normal sensation light touch He right hip examination shows slightly decreased range of motion when compared to her left hip, minimal tenderness over her bursa, increased discomfort with forward flexion and internal rotation Results Reviewed Results Reviewed: MRI of the patient's right hip shows mild to moderate diffuse degenerative changes as well as a tear of the anterior labrum Assessment & Plan Assessment & Plan (1) Labral tear of right hip joint: Code(s): S73.191A - Other sprain of right hip, initial encounter Plan Ms. Bower presents with intermittent right hip discomfort due to early degenerative joint disease as well as a tear of her labrum. I had a lengthy discussion with the patient regarding the treatment options. She wishes to hold off on surgery for as long as possible. I agree with this plan. I did give her a prescription to go to formal physical therapy. Activity modifications were discussed at length with the patient. She will follow up with me on an as- needed basis should her symptoms not plateau at an unacceptable level over the next few months. Feel free to call me at any time should questions regarding her orthopedic management arise. I spent 22 minutes in reviewing the patient's records and imaging studies, seeing the patient and documenting in the medical record. Orders: Orders PT Evaluation and Treatment Today S73.191A - Other sprain of right hip, initial encounter Coding Level of Care Code Est Pt Level 2 (07248) Diagnoses Labral tear of right hip joint S73.191A
== END 2023-11-06 14:05 | disposition home or self-care (01) ==
PROVIDERS: PCP Internal Medicine Geriatric Medicine; Visit Provider Orthopaedic Surgery
DX: S73.191A Other sprain of right hip, initial encounter (principal)
CPT/HCPCS: 99213

== ENCOUNTER → 2023-11-06 13:07 | Outpatient (BNVA) | payer OTHER, SELFPAY | PROVIDERS: PCP Internal Medicine Geriatric Medicine; Visit Provider Orthopaedic Surgery | DX: S73.191A Other sprain of right hip, initial encounter (principal) | CPT/HCPCS: 99212 ==

== ENCOUNTER 2023-12-24 09:50 | Outpatient (REF) | payer OTHER, SELFPAY ==
[2023-12-24 11:35] LABS: MANUAL DIFF FLAG NO
[2023-12-24 11:42] LABS: Basophils Absolute Auto 0.1 X10*3/uL (0.0-0.2); Basophils Percent Auto 1.8 % (0-2); Eosinophils Absolute Auto 0.2 X10*3/uL (0.0-0.4); Eosinophils Percent Auto 4.4 % (0-4); Hematocrit 41.2 % (37.0-47.0); Hemoglobin 13.3 g/dl (12.0-16.0); Imm Gran Abs Auto 0.02 X10*3/uL (0.00-0.03); Imm Gran Pct Auto 0.4 % (0.0-0.4); Lymphocytes Absolute Auto 1.9 X10*3/uL (1.2-4.9); Lymphocytes Percent Auto 41.5 % (20-40); Mean Corpuscular HGB Conc 32.3 g/dl (31.0-35.0); Mean Corpuscular Hemoglobin 29.4 pg (27.0-33.0); Mean Corpuscular Volume 91.2 fL (80.0-98.0); Mean Platelet Volume 11.5 fL (9.4-12.3); Monocytes Absolute Auto 0.4 X10*3/uL (0.1-1.2); Monocytes Percent Auto 7.7 % (2-11); Neutrophils Percent Auto 44.2 % (45-73); Platelet Count 253 X10*3/uL (160-400); Red Blood Count 4.52 X10*6/uL (4.20-5.50); Red Cell Distribution Width 14.7 % (11.0-16.0); White Blood Count 4.5 X10*3/uL (4.8-10.8)
[2023-12-24 12:26] LABS: Anion Gap 10 (12-20); Blood Urea Nitrogen 13 mg/dL (9-16); Carbon Dioxide 26 mmol/L (22-29); Chloride 108 mmol/L (96-108); Estimated Glomerular Filt Rate > 60; Glucose Random 98 mg/dL (60-115); Potassium 4.2 mmol/L (3.3-5.1); Sodium 140 mmol/L (135-145)
== END 2023-12-24 09:51 | disposition home or self-care (01) ==
LOC: HO.HHCL 09:50
PROVIDERS: Visit Provider Internal Medicine Geriatric Medicine
DX: Z79.1 Long term (current) use of non-steroidal anti-inflammatories (NSAID) (principal)
CPT/HCPCS: 36415; 80048; 85025

== ENCOUNTER 2024-02-25 09:37 | Outpatient (AMB) | payer OTHER, SELFPAY ==
--- NOTE | 2024-02-25 09:47 | A.OFFVIS_ITS ---
Intake Vital Signs 02/25/24 09:49 Height 5 ft 1 in Weight 120 lb BMI 22.7 BP 125/59 L Blood Pressure Location Lt brachial Position Sitting Pulse 72 Intake Visit Reasons: 4 month follow up Intake Note: Patient follow up for acid reflex. Patient cc: acid reflex, and between diarrhea and constipation and some dysphagia on and off. Denies any other GI issues. Residential Insurance Inspector Required: Yes Residential Insurance Inspector Name: Alonzo [id number] Accompanied by: Self / Same As Patient Allergies No Known Allergies Allergy (Verified 02/25/24 09:47) HPI HPI Comments History of Present Illness Details A 68-year-old female follows up once again with acid reflux. She was last seen in October had been doing well pantoprazole and dietary modifications. She presents today manager copy device She says she has a bitter taste in her mouth- just today and one other time a long time ago reviewed- diet-ate fruit yogurt last night- She craves chocolate- eats alot- can't stop the craving She mostly feels fine and has no issues- however she is going through a very difficult situation cause a lot of anxiety- personal issue- No N/ V/ D- abdominal pain- fever or chills PFSH Medical History (Updated 11/06/23 @ 14:04 by Syd Fu MD) No pertinent past medical history Surgical History History of esophagogastroduodenoscopy (EGD) Hx of colonoscopy History of eye surgery Hx laparoscopic cholecystectomy Family History Mother HTN (hypertension) Brother HTN (hypertension) Sister HTN (hypertension) Social History Household Members: Spouse Are you a primary child care aide to a significant other at home: No Alcohol intake: current Patient Tobacco Use Status: Former Tobacco user Years Smoked: 10 Current occupational status: employed 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 Review of Systems Const All systems reviewed & are unremarkable except as noted in HPI and below Card Denies chest pain and Denies dyspnea Resp Denies dyspnea GI Denies abdominal pain, Denies change in bowel habits and Denies constipation Psych Reports anxiety Physical Exam Vital Signs: Last Vital Signs Pulse 72 02/25/24 09:49 BP 125/59 L 02/25/24 09:49 BMI result Body Mass Index 22.7 Const General: cooperative, healthy appearing and comfortable Orientation/consciousness: patient oriented x3 Limitations: language barrier Resp Effort & Inspection: normal respiratory effort and able to speak in complete sentences Auscultation: clear to auscultation bilaterally, no rales, no rhonchi and no wheezes Cardio Rate: regular rate Rhythm: regular rhythm Heart sounds: S1 normal heart sound present and S2 normal heart sound present GI Palpation (GI): Soft to palpation and nontender Auscultation: normal bowel sounds Skin General skin exam: no rashes or lesions noted Neuro General: patient oriented x3 Extrem General: Yes full ROM Psych Appearance: grossly normal and well kempt Mental Status: mental status grossly normal Speech and movement: Normal speech and movement present Affect: normal affect Attitude: cooperative Thought content: Normal thought content present Assessment & Plan Assessment & Plan (1) Acid reflux: Comment: Pleasant, happy with results continue pantoprazole 40 mg daily, avoid culprits Code(s): K21.9 - Gastro-esophageal reflux disease without esophagitis Plan: food diary- stress document Patient Instructions: food diary- stress document continue ppi and dietary modifications She agrees with the plan Call with any questions or concerns Coding Level of Care Code Est Pt Level 3 (12706) Diagnoses Acid reflux K21.9 Time Spent (min) 30 Comment [id number]
[2024-02-25 09:49] VITALS: BP 125/59; PULSE 72; BMI 22.7
== END 2024-02-25 10:45 | disposition home or self-care (01) ==
PROVIDERS: PCP Internal Medicine Geriatric Medicine; Visit Provider Physician Assistant
DX: K21.9 Gastro-esophageal reflux disease without esophagitis (principal)
CPT/HCPCS: 99213

== ENCOUNTER → 2024-02-25 09:37 | Outpatient (BNVA) | payer OTHER, SELFPAY | PROVIDERS: PCP Internal Medicine Geriatric Medicine; Visit Provider Physician Assistant | DX: K21.9 Gastro-esophageal reflux disease without esophagitis (principal) | CPT/HCPCS: 99212 ==

== ENCOUNTER 2024-04-21 12:49 | Outpatient (REF) | payer OTHER, SELFPAY ==
--- NOTE | ~2024-04-21 | XR_ITS ---
EXAMINATION: XR LUMBOSACRAL SPINE WITH OBLIQUES CLINICAL INFORMATION: Multiple joint pain, lumbar pain radiating down both legs COMPARISON: None available. TECHNIQUE: AP, both oblique, and lateral views of the lumbar spine. Lateral view of the lumbosacral junction. FINDINGS: There are 5 nonrib-bearing lumbar-type vertebral bodies. The height of the vertebral bodies and disc spaces is well-maintained. There is no spondylolysis or spondylolisthesis. There is mild degenerative facet joint disease in the lower lumbar spine. Surgical clips are seen in the right upper quadrant likely related to prior cholecystectomy. XR/XR lumbar spine 4V min IMPRESSION: Mild degenerative facet joint disease in the lower lumbar spine.
== END 2024-04-21 12:50 | disposition home or self-care (01) ==
LOC: HO.HHCX 12:49
PROVIDERS: Visit Provider Nurse Practitioner Family
DX: M54.50 Low back pain, unspecified (principal); M79.604 Pain in right leg; M79.605 Pain in left leg
CPT/HCPCS: 72110

== ENCOUNTER 2024-04-21 13:13 | Outpatient (REF) | payer OTHER, SELFPAY ==
[2024-04-21 16:01] LABS: MANUAL DIFF FLAG NO
[2024-04-21 16:17] LABS: Basophils Absolute Auto 0.1 X10*3/uL (0.0-0.2); Basophils Percent Auto 1.3 % (0-2); Eosinophils Absolute Auto 0.2 X10*3/uL (0.0-0.4); Eosinophils Percent Auto 3.6 % (0-4); Hematocrit 38.5 % (37.0-47.0); Hemoglobin 12.8 g/dl (12.0-16.0); Imm Gran Abs Auto 0.01 X10*3/uL (0.00-0.03); Imm Gran Pct Auto 0.2 % (0.0-0.4); Lymphocytes Absolute Auto 2.2 X10*3/uL (1.2-4.9); Lymphocytes Percent Auto 40.2 % (20-40); Mean Corpuscular HGB Conc 33.2 g/dl (31.0-35.0); Mean Corpuscular Hemoglobin 30.3 pg (27.0-33.0); Mean Corpuscular Volume 91.2 fL (80.0-98.0); Mean Platelet Volume 11.7 fL (9.4-12.3); Monocytes Absolute Auto 0.6 X10*3/uL (0.1-1.2); Monocytes Percent Auto 10.4 % (2-11); Neutrophils Absolute Auto 2.4 x10*3/uL (2.0-8.3); Neutrophils Percent Auto 44.3 % (45-73); Platelet Count 218 X10*3/uL (160-400); Red Blood Count 4.22 X10*6/uL (4.20-5.50); Red Cell Distribution Width 14.6 % (11.0-16.0); White Blood Count 5.5 X10*3/uL (4.8-10.8)
[2024-04-21 16:45] LABS: Rheumatoid Factor < 13.0 IU/mL (<15.0)
[2024-04-21 16:48] LABS: C Reactive Protein < 0.10 mg/dL (< or = 0.50); Cholesterol 232 mg/dL (<200); HDL Cholesterol 46 mg/dL (>40); LDL Cholesterol Calculated 161 mg/dL (<100); Triglycerides 127 mg/dL (<150)
[2024-04-21 16:56] LABS: Erythrocyte Sedimentation Rate 8 MM/HR (0-20)
[2024-04-21 17:04] LABS: TSH reflex Free T4 1.09 uIU/mL (0.32-4.0)
[2024-04-23 20:48] LABS: Cyclic Citrullinated Peptide <16 UNITS
== END 2024-04-21 13:14 | disposition home or self-care (01) ==
LOC: HO.HHCL 13:13
PROVIDERS: Visit Provider Nurse Practitioner Family
DX: Z13.220 Encounter for screening for lipoid disorders (principal); M25.50 Pain in unspecified joint
CPT/HCPCS: 36415; 80061; 84443; 85025; 85652; 86140; 86200; 86431

== ENCOUNTER 2024-05-05 09:56 | Outpatient (REF) | payer OTHER, SELFPAY | END 2024-05-05 09:57 | disposition home or self-care (01) | LOC: HO.MAMMO 09:56 | PROVIDERS: PCP Internal Medicine Geriatric Medicine; Visit Provider Internal Medicine Geriatric Medicine | DX: Z12.31 Encounter for screening mammogram for malignant neoplasm of breast (principal) | CPT/HCPCS: 77063; 77067 ==

== ENCOUNTER → 2024-05-05 10:00 | Outpatient (BNV) | payer OTHER, SELFPAY | PROVIDERS: PCP Internal Medicine Geriatric Medicine; Visit Provider Radiology Diagnostic Radiology | DX: Z12.31 Encounter for screening mammogram for malignant neoplasm of breast (principal) | CPT/HCPCS: 77063; 77067 ==

== ENCOUNTER 2024-05-12 08:12 | Day surgery (SDC) | payer OTHER, SELFPAY ==
[2024-04-30 15:08] VITALS: BMI 23.1
--- NOTE | 2024-05-08 12:15 | P.CONAN_ITS ---
Documented by User: Margi Earl NP 05/08/24 12:15 HPI - Anesthesia Eval Consult details Narrative: 69yo F for Left Cataract Extraction IOL Insertion No previous cataract on record PMFSH Active Problems Active Problems: All Active Problems Labral tear of right hip joint (Acute) Colon polyps (Acute) Right hip pain (Acute) Left hip pain (Acute) Arthritis of right hip (Acute) Arthritis of left hip (Acute) Bowel habit changes (Acute) H. pylori infection (Acute) Encounter for screening colonoscopy (Acute) Irritable bowel (Acute) Acid reflux (Acute) Chronic constipation (Acute) Polyarthralgia (Acute) SILKE positive (Acute) Past Medical History Medical History Varicose vein of leg GERD (gastroesophageal reflux disease) Elevated cholesterol Inactive tuberculosis Joint pain Renal stone Osteoporosis Family History Family History Mother HTN (hypertension) Brother HTN (hypertension) Sister HTN (hypertension) Surgical History Surgical History History of esophagogastroduodenoscopy (EGD) Hx of colonoscopy History of eye surgery Hx laparoscopic cholecystectomy History of Problems with Anesthesia: No Social History Social History Household Members: Spouse Are you a primary property caretaker to a significant other at home: No Alcohol intake: current Patient Tobacco Use Status: Former Tobacco user Tobacco use type: Cigarette Years Smoked: 10 Use of substances other than those prescribed or required for medical reasons: No Have you been hit, kicked, punched, or otherwise hurt by someone within the past year? If so, by whom?: No Are you DNR?: No Advance Directives: No Advance Directives Information Provided: Yes Advance Directives on File: No Recently lost weight without trying: No Nutrition Risks: No Nutritional Risk Current occupational status: employed Current occupation: [employer] Allergies Allergy/AdvReac Type Severity Reaction Status Date / Time No Known Allergies Allergy Verified 05/12/24 09:57 Home Medications ?Medication ?Instructions ?Recorded ?Confirmed ?Last Taken ?Type ascorbate calcium (vitamin C) 500 500 mg PO DAILY 09/22/20 11/06/23 Unknown History mg tablet cholecalciferol (vitamin D3) 25 25 mcg PO DAILY 09/22/20 04/30/24 Unknown History mcg (1,000 unit) capsule omega-3 fatty acids 1,000 mg 1,000 mg PO DAILY 09/22/20 04/30/24 Unknown History capsule acetaminophen 500 mg tablet 500 mg PO Q6H PRN Pain 04/30/24 04/30/24 Unknown History cetirizine 10 mg tablet 10 mg PO DAILY 04/30/24 04/30/24 Unknown History conjugated estrogens 0.625 mg/gram 0.625 mg vaginal 3XW 04/30/24 04/30/24 Unknown History vaginal cream (Premarin) diclofenac sodium 1 % topical gel 2 g topical QID 04/30/24 04/30/24 Unknown History fluticasone propionate 50 1 spray intranasal BID 04/30/24 04/30/24 Unknown History mcg/actuation nasal spray,suspension meclizine 25 mg tablet 25 mg PO BID PRN Vertigo 04/30/24 04/30/24 Unknown History Exam Height,Weight and Vital Signs: Height 5 ft 1 in Weight 55.423 kg Assessment and Plan Assessment Anesthesia Assessment: Chart Reviewed Final Anesthetic Review History of Problems with Anesthesia: No Documented by User: Marge Perez MD 05/12/24 10:05 [facility] Past Medical History Medical History Varicose vein of leg GERD (gastroesophageal reflux disease) Elevated cholesterol Inactive tuberculosis Joint pain Renal stone Osteoporosis Family History Family History Mother HTN (hypertension) Brother HTN (hypertension) Sister HTN (hypertension) Family history of problems with anesthesia: No Surgical History Surgical History History of esophagogastroduodenoscopy (EGD) Hx of colonoscopy History of eye surgery Hx laparoscopic cholecystectomy Social History Social History Household Members: Spouse Are you a primary property caretaker to a significant other at home: No Alcohol intake: current Patient Tobacco Use Status: Former Tobacco user Tobacco use type: Cigarette Years Smoked: 10 Use of substances other than those prescribed or required for medical reasons: No Have you been hit, kicked, punched, or otherwise hurt by someone within the past year? If so, by whom?: No Are you DNR?: No Advance Directives: No Advance Directives Information Provided: Yes Advance Directives on File: No Recently lost weight without trying: No Nutrition Risks: No Nutritional Risk Current occupational status: employed Current occupation: [employer] Allergies Allergy/AdvReac Type Severity Reaction Status Date / Time No Known Allergies Allergy Verified 05/12/24 09:57 Home Medications ?Medication ?Instructions ?Recorded ?Confirmed ?Last Taken ?Type ascorbate calcium (vitamin C) 500 500 mg PO DAILY 09/22/20 11/06/23 Unknown History mg tablet cholecalciferol (vitamin D3) 25 25 mcg PO DAILY 09/22/20 04/30/24 Unknown History mcg (1,000 unit) capsule omega-3 fatty acids 1,000 mg 1,000 mg PO DAILY 09/22/20 04/30/24 Unknown History capsule acetaminophen 500 mg tablet 500 mg PO Q6H PRN Pain 04/30/24 04/30/24 Unknown History cetirizine 10 mg tablet 10 mg PO DAILY 04/30/24 04/30/24 Unknown History conjugated estrogens 0.625 mg/gram 0.625 mg vaginal 3XW 04/30/24 04/30/24 Unknown History vaginal cream (Premarin) diclofenac sodium 1 % topical gel 2 g topical QID 04/30/24 04/30/24 Unknown History fluticasone propionate 50 1 spray intranasal BID 04/30/24 04/30/24 Unknown History mcg/actuation nasal spray,suspension meclizine 25 mg tablet 25 mg PO BID PRN Vertigo 04/30/24 04/30/24 Unknown History Exam Airway Mallampati Class: II TM Dist: >3cm Neck ROM: Full Assessment and Plan Assessment Anesthesia Assessment: Anesthesia Plan Discussed Final Anesthetic Review Family History of Problems with Anesthesia: No NPO: Yes ASA Class: II Final Preanesthetic Review: No Changes in Pt Med Stat, Meds/Allgs Chart Reviewed, Consent Obtained/Reviewed and Anes Risks/Benef Reviewed Patient Risk: Low Procedure Risk: Low Anesthetic Plan Anesthetic Plan: MAC: Disposition: Standard PACU
[2024-05-12] MEDS: Phenylephrine HCL 2.5% Oph SoL 2 ML BOTTLE 1 DROP EYE-LEFT ×3 (09:36→09:42)
[2024-05-12] MEDS: Tetracaine HCl/PF 0.5% Oph Sol 4 ML DROPS 1 DROP EYE-LEFT (09:36)
[2024-05-12] MEDS: Cyclopentolate 1 % Ophth Sol 2 ML DRPBTL 1 DROP EYE-LEFT ×3 (09:37→09:43)
[2024-05-12] MEDS: Tropicamide 1 % Ophth Sol 3 ML BTL 1 DROP EYE-LEFT ×3 (09:37→09:43)
[2024-05-12] MEDS: Ketorolac Tromethamine 0.5% Op 10 ML DROPS 1 DROP EYE-LEFT ×3 (09:37→09:43)
[2024-05-12] MEDS: Lactated Ringers 500 ML 50 ML IV (09:37)
[2024-05-12 09:55] VITALS: BP 102/60; PULSE 77; RESP 18; TEMP 36.8; O2SAT 96
--- NOTE | 2024-05-12 10:44 | MHC.SHP ---
Pre-Procedural Eval Section A - 24 Hr Update-Section A only Date of Service: 05/12/24 The patient is an INPATIENT: No Changes since office visit: No Cold of Flu in the past 2 weeks, No New Medical Problems, No Changes in Medication and No Patient answered all questions The patient has been examined within 24 hours of the surgical procedure. The History & Physical has been completed within 30 days and I have reviewed it.: Yes Section B - Complete if H&P > 30 days Chief Complaint: Age-related nuclear cataract, left eye Allergies: Allergies Allergy/AdvReac Type Severity Reaction Status Date / Time No Known Allergies Allergy Verified 05/12/24 09:57 Plan Diagnosis/Plan: Unchanged I have reviewed the history and physical and performed a pertinent physical examination on my patient. No changes have occurred unless specified. Time Spent With Patient Time: Total time managing care of this patient today ____ minutes.
--- NOTE | 2024-05-12 10:46 | HO.PNOPHT ---
Ophthalmology Procedure Procedure Date of Service: 05/12/24 Ophthalmology Viscoelastic: Healon Duet Dual Pack Pro Ophthalmology Lenses: IOL Acrysof MP - MA60AC (24.5) Procedure Notes: PREOPERATIVE DIAGNOSIS: Decreased visual acuity left eye secondary to cataract POSTOPERATIVE DIAGNOSIS: Same PROCEDURE: Left cataract extraction with intraocular lens insertion SURGEON: Misael Pham M.D. ANESTHESIA: Topical/MAC ESTIMATED BLOOD LOSS: None COMPLICATIONS: None After obtaining informed consent, the patient was brought to the operation room suite and placed in the supine position. After adequate sedation per anesthesia, topical drops of Tetracaine were given to the left eye. The eye was then prepped and draped in the usual sterile fashion. The operating room microscope was then positioned over the operative eye and a lid speculum placed. A paracentesis was created. Viscoelastic was then instilled into the anterior chamber. A three plane incision was then created temporally, utilizing a 2.85 mm keratome. Capsulotomy forceps were then utilized to create a circular tear capsulotomy. Hydrodissection and hydrodelineation were carried out until adequate mobilization of the nucleus occurred. Phacoemulsification was then utilized to remove the dense central nucleus followed by removal of the cortical material utilizing the automated aspiration irrigation unit. Viscoat elastic was instilled into the posterior capsular bag followed by placement of a posterior chamber intraocular lens without difficulty. The residual Viscoat elastic was then removed utilizing the automated IA machine. The wound was check and found to be watertight. The patient tolerated the procedure well and the lid speculum was removed. Intracameral injection of Vigamox 0.1 mL followed by a subtenon injection of Kenalog-40 0.2 mL were administered. The patient will be seen in the a.m.
[2024-05-12 11:13] VITALS: BP 136/75; PULSE 57; RESP 16; TEMP 36.3; O2SAT 98
== END 2024-05-12 11:27 | disposition home or self-care (01) ==
PROVIDERS: PCP Internal Medicine Geriatric Medicine; Visit Provider Ophthalmology
PROC: (CPT 66985; principal; 2024-05-12 10:30)
DX: H25.12 Age-related nuclear cataract, left eye (principal); H52.4 Presbyopia; H18.413 Arcus senilis, bilateral; H04.123 Dry eye syndrome of bilateral lacrimal glands; M81.0 Age-related osteoporosis without current pathological fracture; E78.5 Hyperlipidemia, unspecified; Z86.15 Personal history of latent tuberculosis infection; Z79.899 Other long term (current) drug therapy; Z79.51 Long term (current) use of inhaled steroids
CPT/HCPCS: 66984; J2250; J3301; V2630

== ENCOUNTER 2024-05-19 07:36 | Day surgery (SDC) | payer OTHER, SELFPAY ==
--- NOTE | 2024-05-16 10:17 | HO.ANESPROP2 ---
Documented by User: Margi Earl NP 05/16/24 10:18 HPI - Anesthesia Eval Consult details Narrative: 69yo F for Right Cataract Extraction IOL Insertion Left eye 05/12/24: [facility] 2 PMFSH Active Problems Active Problems: All Active Problems Labral tear of right hip joint (Acute) Colon polyps (Acute) Right hip pain (Acute) Left hip pain (Acute) Arthritis of right hip (Acute) Arthritis of left hip (Acute) Bowel habit changes (Acute) H. pylori infection (Acute) Encounter for screening colonoscopy (Acute) Irritable bowel (Acute) Acid reflux (Acute) Chronic constipation (Acute) Polyarthralgia (Acute) SILKE positive (Acute) Past Medical History Medical History Varicose vein of leg GERD (gastroesophageal reflux disease) Elevated cholesterol Inactive tuberculosis Joint pain Renal stone Osteoporosis Family History Family History Mother HTN (hypertension) Brother HTN (hypertension) Sister HTN (hypertension) Family history of problems with anesthesia: No Surgical History Surgical History History of esophagogastroduodenoscopy (EGD) Hx of colonoscopy History of eye surgery Hx laparoscopic cholecystectomy History of Problems with Anesthesia: No Social History Social History Household Members: Spouse Are you a primary director of healthcare systems to a significant other at home: No Alcohol intake: current Patient Tobacco Use Status: Former Tobacco user Tobacco use type: Cigarette Years Smoked: 10 Advance Directives: No Advance Directives Information Provided: Yes Current occupational status: employed Current occupation: [employer] Allergies Allergy/AdvReac Type Severity Reaction Status Date / Time No Known Allergies Allergy Verified 05/12/24 09:57 Home Medications ?Medication ?Instructions ?Recorded ?Confirmed ?Last Taken ?Type ascorbate calcium (vitamin C) 500 500 mg PO DAILY 09/22/20 11/06/23 Unknown History mg tablet cholecalciferol (vitamin D3) 25 25 mcg PO DAILY 09/22/20 04/30/24 Unknown History mcg (1,000 unit) capsule omega-3 fatty acids 1,000 mg 1,000 mg PO DAILY 09/22/20 04/30/24 Unknown History capsule acetaminophen 500 mg tablet 500 mg PO Q6H PRN Pain 04/30/24 04/30/24 Unknown History cetirizine 10 mg tablet 10 mg PO DAILY 04/30/24 04/30/24 Unknown History conjugated estrogens 0.625 mg/gram 0.625 mg vaginal 3XW 04/30/24 04/30/24 Unknown History vaginal cream (Premarin) diclofenac sodium 1 % topical gel 2 g topical QID 04/30/24 04/30/24 Unknown History fluticasone propionate 50 1 spray intranasal BID 04/30/24 04/30/24 Unknown History mcg/actuation nasal spray,suspension meclizine 25 mg tablet 25 mg PO BID PRN Vertigo 04/30/24 04/30/24 Unknown History Assessment and Plan Assessment Anesthesia Assessment: Chart Reviewed Final Anesthetic Review Family History of Problems with Anesthesia: No History of Problems with Anesthesia: No Documented by User: Malinda Magallon MD 05/19/24 08:15 PMFSH Past Medical History Medical History Varicose vein of leg GERD (gastroesophageal reflux disease) Elevated cholesterol Inactive tuberculosis Joint pain Renal stone Osteoporosis Family History Family History Mother HTN (hypertension) Brother HTN (hypertension) Sister HTN (hypertension) Surgical History Surgical History History of esophagogastroduodenoscopy (EGD) Hx of colonoscopy History of eye surgery Hx laparoscopic cholecystectomy Social History Social History Household Members: Spouse Are you a primary director of healthcare systems to a significant other at home: No Alcohol intake: current Patient Tobacco Use Status: Former Tobacco user Tobacco use type: Cigarette Years Smoked: 10 Advance Directives: No Advance Directives Information Provided: Yes Current occupational status: employed Current occupation: [employer] Allergies Allergy/AdvReac Type Severity Reaction Status Date / Time No Known Allergies Allergy Verified 05/12/24 09:57 Home Medications ?Medication ?Instructions ?Recorded ?Confirmed ?Last Taken ?Type ascorbate calcium (vitamin C) 500 500 mg PO DAILY 09/22/20 11/06/23 Unknown History mg tablet cholecalciferol (vitamin D3) 25 25 mcg PO DAILY 09/22/20 04/30/24 Unknown History mcg (1,000 unit) capsule omega-3 fatty acids 1,000 mg 1,000 mg PO DAILY 09/22/20 04/30/24 Unknown History capsule acetaminophen 500 mg tablet 500 mg PO Q6H PRN Pain 04/30/24 04/30/24 Unknown History cetirizine 10 mg tablet 10 mg PO DAILY 04/30/24 04/30/24 Unknown History conjugated estrogens 0.625 mg/gram 0.625 mg vaginal 3XW 04/30/24 04/30/24 Unknown History vaginal cream (Premarin) diclofenac sodium 1 % topical gel 2 g topical QID 04/30/24 04/30/24 Unknown History fluticasone propionate 50 1 spray intranasal BID 04/30/24 04/30/24 Unknown History mcg/actuation nasal spray,suspension meclizine 25 mg tablet 25 mg PO BID PRN Vertigo 04/30/24 04/30/24 Unknown History Exam Airway Mallampati Class: II TM Dist: >3cm Neck ROM: Full Loose/Missing/Broken Teeth: No Heart: RRR Lungs: CTA Assessment and Plan Assessment Anesthesia Assessment: Anesthesia Plan Discussed Final Anesthetic Review NPO: Yes ASA Class: II Final Preanesthetic Review: Meds/Allgs Chart Reviewed, Consent Obtained/Reviewed and Anes Risks/Benef Reviewed Patient Risk: Low Procedure Risk: Low Anesthetic Plan Anesthetic Plan: MAC: Disposition: Standard PACU
[2024-05-19 08:02] VITALS: BP 112/63; PULSE 59; RESP 15; TEMP 36.2; O2SAT 96
[2024-05-19] MEDS: Lactated Ringers 500 ML 50 ML IV (08:16)
[2024-05-19 08:19] VITALS: BMI 22.2
--- NOTE | 2024-05-19 09:16 | P.PCNO_ITS ---
Ophthalmology Procedure Procedure Date of Service: 05/19/24 Ophthalmology Viscoelastic: Healon Duet Dual Pack Pro Ophthalmology Lenses: IOL Acrysof MP - MA60AC (24) Procedure Notes: PREOPERATIVE DIAGNOSIS: Decreased visual acuity right eye secondary to cataract POSTOPERATIVE DIAGNOSIS: Same PROCEDURE: Right cataract extraction with intraocular lens insertion SURGEON: Misael Pham M.D. ANESTHESIA: Topical/MAC ESTIMATED BLOOD LOSS: None COMPLICATIONS: None After obtaining informed consent, the patient was brought to the operating room suite and placed in the supine position. After adequate sedation per anesthesia, topical drops of Tetracaine were given to the right eye. The eye was then prepped and draped in the usual sterile fashion. The operating room microscope was then positioned over the operative eye and a lid speculum placed. A paracentesis was created. Viscoelastic was then instilled into the anterior chamber. A three plane incision was then created temporally, utilizing a 2.85 mm keratome. Capsulotomy forceps were then utilized to create a circular tear capsulotomy. Hydrodissection and hydrodelineation were carried out until adequate mobilization of the nucleus occurred. Phacoemulsification was then utilized to remove the dense central nucl eus followed by removal of the cortical material utilizing the automated aspiration irrigation unit. Viscoelastic was instilled into the posterior capsular bag followed by placement of a posterior chamber intraocular lens without difficulty. The residual Viscoelastic was then removed utilizing the automated IA machine. The wound was checked and found to be watertight. The patient tolerated the procedure well and the lid speculum was removed. Intracameral injection of Vigamox 0.1 mL followed by a subtenon injection of Kenalog-40 0.2 mL were administered. The patient will be seen in the a.m.
--- NOTE | 2024-05-19 09:16 | MHC.SHP ---
Pre-Procedural Eval Section A - 24 Hr Update-Section A only Date of Service: 05/19/24 The patient is an INPATIENT: No Changes since office visit: No Cold of Flu in the past 2 weeks, No New Medical Problems, No Changes in Medication and No Patient answered all questions The patient has been examined within 24 hours of the surgical procedure. The History & Physical has been completed within 30 days and I have reviewed it.: Yes Section B - Complete if H&P > 30 days Chief Complaint: Age-related nuclear cataract, right eye Allergies: Allergies Allergy/AdvReac Type Severity Reaction Status Date / Time No Known Allergies Allergy Verified 05/19/24 08:18 Plan Diagnosis/Plan: Unchanged I have reviewed the history and physical and performed a pertinent physical examination on my patient. No changes have occurred unless specified. Time Spent With Patient Time: Total time managing care of this patient today ____ minutes.
[2024-05-19 09:47] VITALS: BP 134/76; PULSE 57; RESP 16; TEMP 36.1; O2SAT 99
== END 2024-05-19 09:52 | disposition home or self-care (01) ==
PROVIDERS: PCP Internal Medicine Geriatric Medicine; Visit Provider Ophthalmology
PROC: (CPT 66985; principal; 2024-05-19 08:50)
DX: H25.11 Age-related nuclear cataract, right eye (principal); H52.4 Presbyopia; H18.413 Arcus senilis, bilateral; H04.123 Dry eye syndrome of bilateral lacrimal glands; H11.153 Pinguecula, bilateral; H11.133 Conjunctival pigmentations, bilateral; M81.0 Age-related osteoporosis without current pathological fracture; E78.5 Hyperlipidemia, unspecified; Z79.899 Other long term (current) drug therapy; Z79.51 Long term (current) use of inhaled steroids; Z86.15 Personal history of latent tuberculosis infection; Z87.891 Personal history of nicotine dependence
CPT/HCPCS: 66984; J2250; J3301; V2630

== ENCOUNTER 2024-12-10 13:11 | Outpatient (REF) | payer OTHER, SELFPAY ==
--- OUTSIDE RECORDS SUMMARY | 2024-12-10 15:10 | XMS_ITS | Encounter Summary ---
Author Organization [employer] Address [address] [place] [address] Care Team Providers Care Machine Finisher Name Role Phone Name, Randal GALLEGOS Primary Care Provider [phone] Reason for Visit * Reason Onset Date Comments Chart Prep 12/09/2024 Encounter Details Date Type Department Care Team ([facility] st Contact Info) Description 12/09/2024 Telephone [facility] MEDICINE [address], [place] [id number] Name, MD Randal [address] [place] [address] Chart Prep Social History Tobacco Use Types Packs/Day Years Used Date Smoking Tobacco: Never Passive Smoke Exposure: Never Smokeless Tobacco: Never Alcohol Use Standard Drinks/Week Comments Yes 0 (1 standard drink = 0.6 oz pur e alcohol) occassional Alcohol Answer Date Recorded Frequency of Alcohol Consumption Not on file 04/29/2024 Average Number of Drinks Not on file 024 Frequency of Binge Drinking Not on file 04/19 Score 0 04/29/2024 Depression Answer Date Recorded Patient Health Questionnaire-9 Score 0 03/31/2024 Patient Health Questionnaire-9 Score 0 03/31/2024 Last PHQ-9: Questionnaire Data Not on file 0 03/31/2024 Housing Stability Answer Date Recorded What is your housing situation today? I have vashti carlson 03/31/[address] you li ve. Do you have problems with any of the following? None of the above 03/31/2024 Food Insecurity Answer Date Recorded Within the past 12 months, y ou worried that your food would run out before you got money to buy more: Never True 03/31/2024 Within the past 12 months,th e food you bought just didn't last and you didn't have enough money to get more: Never True Transportation Answer Date Recorded In the past 12 months, has l ack of transportation kept you from medical appts, meetings, work or from getting things needed for daily living? No 03/31/2024 Utilities Answer Date Recorded In the past 12 months, has t he electric, gas, oil or water company threatened to shut off services in your home? No 03/31/2024 Depression Answer Date Recorded Patient Health Questionnaire-2 Score 0 03/31/2024 Comments No Sex and Gender Information Value Date Recorded Sex Assigned at Female 09/18/2022 10:18 AM EDT Legal Sex Female 10:18 AM EDT Gender Identity Female 09/18/2022 10:18 AM EDT Sexual Orientation Straight 09/18/2022 10 :18 AM EDT documented as of this encounter Miscellaneous Notes * Telephone Encounter - Kyrie Elena [place] - 12/09/2024 2:41 PM EST Chart Prep Labs: not applicable Images: not applicable Vaccines due: yes Zoster Covid Referrals: complete Screenings: STI screening, Overdue care gaps: None documented in this encounter Plan of Treatment Upcoming Encounters Date Type Department Care Team (Late st Contact Info) Description 02/10/2025 9:15 AM EDT Office Visit [facility] MEDICINE [address] [place] [address] NameRandal MD [address] [place] [address] documented as of this encounter Visit Diagnoses Not on filedocumented in this encounter Additional Health Concerns Assessment Noted Time PHQ-9 Depression Total Score: 0 03/31/20 24 9:19 AM EDT documented as of this encounter Care Teams Machine Finisher Relationship Specialty Start Date End Date NameRandal MD [address] [place] [id number] PCP - General Family Medicine 04/11/16 documented as of this encounter
--- OUTSIDE RECORDS SUMMARY | 2024-12-10 15:10 | XMS_ITS | Encounter Summary ---
Author Organization [employer] Address [address] [facility] [address] [place] [address] Care Team Providers Care Rolling Chair Pusher Name Role Phone Name, Randal GALLEGOS Primary Care Provider [phone] Reason for Visit * Reason Comments UTI Encounter Details Date Type Department Care Team ([facility] st Contact Info) Description 12/10/2024 9:00 AM EST Office Visit [facility] [address] [place], [place] [id number] Beth Beyer CNM [address] [place] [address] Recurrent UTI (Primary Dx); Urinary tract infection without hematuria, site unspecified Social History Tobacco Use Types Packs/Day Years [...] the past 12 months, has t he [employer], gas, oil or water [employer] threatened to shut off services in your home? No 03/31/2024 Depression Answer Date Recorded Patient Health Questionnaire-2 Score 0 03/31/2024 Comments No Sex and Gender Information Value Date Recorded Sex Assigned at Female 09/18/2022 10:18 AM EDT Legal Sex Female 10:18 AM EDT Gender Identity Female 09/18/2022 10:18 AM EDT Sexual Orientation Straight 09/18/2022 10 :18 AM EDT documented as of this encounter Last Filed Vital Signs Vital Sign Reading Time Taken Comments Blood Pressure 122/76 12/10/2024 9:01 AM EST Pulse 74 12/10/2024 9:01 AM EST Temperature 36.4 ??C (97.6 ??F) 12/10/2024 9:01 AM ES T Respiratory Rate 18 12/10/2024 9:01 AM EST Oxygen Saturation 97% 12/10/2024 9:01 AM EST Inhaled Oxygen Concentration - - Weight 55.7 kg (122 lb 12.8 oz) 12/10/2024 9:01 AM EST Height - - Body Mass Index 22.46 09/23/2024 11:16 AM EST documented in this encounter Progress Notes * Abhi Garza CNP - 12/10/2024 9:00 AM EST Subjective Patient ID: Yoly Bower is a 69 y.o. female who presents for UTI symptoms x 4 days, reporting decreased urine output, suprapubic pressure during and after urinating, and reports mild burning with urination. Reports that she has been taking ibuprofen and tylenol that helps with pain. Denies bloodin the urine, denies flank pain, denies foul odor. Denies fever and chills. Pt has a hx of recurrent UTIs usually 2-3 a year. This is her first one this year. She is not currently taking vaginal estrogen. Was taking it over a year ago and reported less frequent infections with use. Review of Systems Constitutional: Negative for appetite change, chills, diaphoresis, fatigue and fever. Respiratory: Negative for cough, choking, chest tightness, shortness of breath and wheezing. Cardiovascular: Negative for chest pain and palpitations. Gastrointestinal: Negative for abdominal pain, constipation, diarrhea, nausea and vomiting. Genitourinary: Positive for decreased urine volume, dysuria, frequency and pelvic pain. Negative for difficulty urinating, enuresis, flank pain, genital sores, hematuria, menstrual problem, urgency, vaginal bleeding, vaginal discharge and vaginal pain. Musculoskeletal: Negative. Skin: Negative. Neurological: Negative. Psychiatric/Behavioral: Negative. Objective Vitals: 12/10/24 0901 BP: 122/76 Pulse: 74 Resp: 18 Temp: 97.6 ??F (36.4 ??C) SpO2: 97% Physical Exam Constitutional: General: She is not in acute distress. Appearance: Normal appearance. She is normal weight. She is not ill-appearing or toxic-appearing. HENT: Head: Normocephalic and atraumatic. Cardiovascular: Rate and Rhythm: Normal rate and regular rhythm. Pulses: Normal pulses. Heart sounds: Normal heart sounds. No murmur heard. No friction rub. No gallop. Pulmonary: Effort: Pulmonary effort is normal. No respiratory distress. Breath sounds: Normal breath sounds. No stridor. No wheezing, rhonchi or rales. Abdominal: General: Abdomen is flat. Bowel sounds are normal. Tenderness: There is no right CVA tenderness or left CVA tenderness. Skin: General: Skin is warm and dry. Capillary Refill: Capillary refill takes less than 2 seconds. Neurological: General: No focal deficit present. Mental Status: She is alert and oriented to person, place, and time. Mental status is at baseline. Psychiatric: Mood and Affect: Mood normal. Behavior: Behavior normal. Assessment/Plan Diagnoses and all orders for this visit: Recurrent UTI - Estrogens Conjugated (Premarin) 0.625 MG/GM cream; Insert 1 each into the vagina See administration instructions. 0.5 to 1 g once daily for 2 weeks, then reduce dose and/or frequency to lowest effective dose (usual maintenance dose: 0.5 to 1 g one to 3 times/week) - sulfamethoxazole-trimethoprim (Bactrim DS) 800-160 MG tablet; Take 1 tablet by mouth 2 times daily for 7 days. - POCT Urinalysis - Culture, Urine, Routine Plan: Will send vaginal estrogen for patient to take everyday x 2 weeks and then pt will take 2-3 days a week, refills were sent. Encouraged pt to drink 2-3L of water daily. Urinary tract infection without hematuria, site unspecified Plan: POCT U/A showed trace leuks and trace blood, otherwise unremarkable Will treat based on previous culture study showing susceptibility to Bactrim while awaiting updatedculture that was sent. Will treat for 7 days Will f/u with pt with culture results and will adjust treatment as needed. Pt may RTC if symptoms worsen or do not improve with treatment [facility] ASSISTANT CROSS COUNTRY COACH Attestation ASSISTANT CROSS COUNTRY COACH Resident Attestation: Patient was seen and evaluated by Abhi Garza CNP, in collaboration with Beth Beyer CNM who has reviewed my assessment and plan. I, Beth Beyer CNM have reviewed the resident's note and agree with the assessment & plan of care as documented above. documented in this encounter Plan of Treatment Upcoming Encounters Date Type Department Care Team (Late st Contact Info) Description 02/10/2025 9:15 AM EDT Office Visit [facility] [address] [place] [phone] Name, MD Randal [address] [place] [address] Scheduled Orders Name Type Priority Associated Diagnoses Orde r Schedule Culture, Urine, Routine Microbiology Routine Recurrent UTI Ordered: 12/10/2024 documented as of this encounter Procedures Procedure Name Priority Date/Time Associated Diagnosis Comments POCT URINALYSIS DIPSTICK Routine 12/10/2024 9:38 AM EST Recurrent UTI documented in this encounter Results * (ABNORMAL) POCT Urinalysis (12/10/2024 9:38 AM EST) Color, UA Light Yellow Clarity, UA Clear Glucose, UA Negative Bilirubin, UA Negative Ketones, UA Negative Spec Grav, UA 1.020 Blood, UA Positive(A) Negative, None Detected Comment:Trace-Intact pH, UA 6.0 Protein, UA Negative Urobilinogen, UA 0.2 Leukocytes, UA Trace Negative, Rare, Trace Nitrite, UA Negative Negative, None Detected Appearance, UA Yellow QC Media Lot # [id number] Lot# Expiration Date Urine 12/10/2024 9:38 AM EST Beth HANNA POINT OF CARE TEST ENTER/ EDIT ORDERABLES Final Result documented in this encounter Visit Diagnoses Diagnosis Recurrent UTI- Primary Urinary tract infection, site not specified Urinary tract infection without hematuria, site unspecified documented in this encounter Additional Health Concerns Assessment Noted Time PHQ-9 Depression Total Score: 0 03/31/20 24 9:19 AM EDT documented as of this encounter Care Teams Rolling Chair Pusher Relationship Specialty Start Date End Date Name, MD Randal [address] [place] [address] PCP - General Family Medicine 04/11/16 documented as of this encounter
--- OUTSIDE RECORDS SUMMARY | 2024-12-10 15:10 | XMS_ITS | Encounter Summary ---
Author Organization [employer] Address [address] [facility] [address] [place] [address] Care Team Providers Care Senior Oracle Pl Sql Developer Name Role Phone Name, Randal GALLEGOS Primary Care Provider [phone] Encounter Details Date Type Department Care Team (Late st Contact Info) Description 03/21/2023 Abstract [facility] [address] [place] [address] [phone] Name, MD Randal [address] [place] [address] [phone] Social History Tobacco Use Types Packs/Day Years Used Date Smoking Tobacco: Never Smokeless Tobacco: Never PHQ-2 Answer Date Recorded Patient Health Questionnaire-2 Score 0 01/09/2023 Depression Answer Date Recorded Patient Health Questionnaire-2 Score 0 01/09/2023 Comments No Sex and Gender Information Value Date Recorded Sex Assigned at Female 09/18/2022 10:18 AM EDT Legal Sex Female 10:18 AM EDT Gender Identity Female 09/18/2022 10:18 AM EDT Sexual Orientation Straight 09/18/2022 10 :18 AM EDT COVID-19 Exposure Response Date Recorded In the last 10 days, have yo u been in contact with someone who was confirmed or suspected to have Coronavirus/COVID-19? No / Unsure 03/19/2023 10:11 AM EDT documented as of this encounter Plan of Treatment Upcoming Encounters Date Type Department Care Team (Late st Contact Info) Description 02/10/2025 9:15 AM EDT Office Visit [facility] [address] [place] [address] [phone] Name, MD Randal [address] [place] [phone] documented as of this encounter Visit Diagnoses Not on filedocumented in this encounter Care Teams Senior Oracle Pl Sql Developer Relationship Specialty Start Date End Date Name, MD Randal [address] [place] [address] PCP - General Family Medicine 04/11/16 documented as of this encounter
--- OUTSIDE RECORDS SUMMARY | 2024-12-10 15:10 | XMS_ITS | Clinical Summary ---
Author Organization [email or web address] Address [address] [place] [address] [address] [place] [address] Care Team Providers Care Terrazzo Installer Name Role Phone Name, Randal GALLEGOS Primary Care Provider [phone] Allergies No known active allergies Medications Acetaminophen Extra Strength 500 MG tablet Take 500 mg by mouth every 6 (six) hours if needed. 022 Active bismuth subsalicylate (Pepto Bismol) 262 MG chewable tablet TOME DOS TABLETAS POR V A ORAL CUATRO VECES AL D A FOR 14 DAYS 022 Active meclizine (Antivert) 25 MG tablet TAKE 1 TABLET BY MOUTH TWICE DAILY NEEDED FOR DIZZINESS 022 Active pantoprazole (ProtoNix) 20 MG EC tablet Take 1 tablet (20 mg) by mouth before breakfast. 30 tablet 3 023 Active Diclofenac Sodium 1 % gel APPLY TO THE AFFECTED AREA(S) TOPICALLY TWICE DAILY 100 g 2 023 Active hydrocortisone 2.5 % cream Apply by topical route 1-2 times per day after shower or bath from the neck down (not on face). 60 g 1 023 Active fluticasone (Flonase) 50 MCG/ACT nasal sprayIndications :Post-nasal drip Administer 1-2 sprays into each nostril in the morning. Shake gently. Before first use, prime pump. After use, clean tip and replace cap. 16 g 2 024 2024 Active cetirizine (ZyrTEC) 10 MG tablet Take 1 tablet (10 mg) by mouth Once per day. 30 tablet 2 024 Active Additional Information Patient not taking.Reported on 04/29/2024 Estrogens Conjugated (Premarin) 0.625 MG/GM creamIndications :Recurrent UTI Insert 1 each into the vagina See administration instructions. 0.5 to 1 g once daily for 2 weeks, then reduce dose and/or frequency to lowest effective dose (usual maintenance dose: 0.5 to 1 g one to 3 times/week) 30 g 3 025 Active sulfamethoxazole -trimethoprim (Bactrim DS) 800-160 MG tabletIndication s:Recurrent UTI Take 1 tablet by mouth 2 times daily for 7 days. 14 tablet 025 2024 Active Estrogens Conjugated (Premarin) 0.625 MG/GM cream Insert 1 each into the vagina See administration instructions. 0.5 to 1 g once daily for 2 weeks, then reduce dose and/or frequency to lowest effective dose (usual maintenance dose: 0.5 to 1 g one to 3 times/week) 30 g 3 023 2024 Discontinued(R eorder (will not trigger notification to Pharmacy)) Estrogens Conjugated (Premarin) 0.625 MG/GM creamIndications :Recurrent UTI Insert 1 each into the vagina See administration instructions. 0.5 to 1 g once daily for 2 weeks, then reduce dose and/or frequency to lowest effective dose (usual maintenance dose: 0.5 to 1 g one to 3 times/week) 30 g 3 025 2024 Discontinued sulfamethoxazole -trimethoprim (Bactrim DS) 800-160 MG tabletIndication s:Recurrent UTI Take 1 tablet by mouth 2 times daily for 7 days. 14 tablet 025 2024 Discontinued Active Problems Problem Noted Date Diagnosed Date Localized gingival recession 11/07/2024 Missing teeth, acquired 11/07/2024 Gingival bleeding 11/07/2024 Cataract 04/30/2024 Assessment & Plan (04/30/2024 12:52 PM EDT): Pt is at low risk for complications during upcoming procedure. Has support/transportation in home set up for after surgery. Aware to update with any new symptoms Plantar fasciitis, bilateral 04/21/2024 Assessment & Plan (04/21/2024 6:31 PM EDT): Hx suggestive of plantar fascitis flare. Will refer if labs negative Fractured dental episcopalian with loss of materi al 10/23/2023 Dental caries 10/23/2023 Atrophic vaginitis 05/10/2023 Dental calculus 03/12/2023 Gingival recession, localized 03/12/2023 Simple varicose veins 01/09/2023 Osteoporosis 01/09/2023 Multiple joint pain 01/09/2023 Assessment & Plan (04/21/2024 6:30 PM EDT): Labs as ordered below, reviewed ddx , possible plantar fascitis causing postural changes causing pain, possible lumbar radiculopathy, less likely possibility of autoimmune arthritises. Labs as ordered below, Lumbar films ordered, Consider referral to rheum, podiatry or physiatry pending lab/imaging results Gastro-esophageal reflux disease with esophagiti s 01/09/2023 SILKE positive 01/09/2023 Kidney stone 08/08/2018 Allergic contact dermatitis due to metals 2017 Hyperlipidemia 04/15/2013 Inactive tuberculosis 09/04/2012 Resolved Problems Problem Noted Date Diagnosed Date Resolved Date Low back pain 07/18/2012 12/24/2023 Encounters Date Type Department Care Team Description 12/10/2024 9:00 AM EST Office Visit [address] [address] Beth Beyer CNM Recurrent UTI (Primary Dx); Urinary tract infection without hematuria, site unspecified 12/09/[address] [address] NameRandal MD Chart Prep 11/27/[address] [address] Marisa Harper [place] feb recalls 11/07/2024 8:00 AM EST Office Visit [facility] [address] [place] [id number] Buster, Tonya Dental calculus (Primary Dx); Localized gingival recession; Missing teeth, acquired; Gingival bleeding 09/23/2024 11:00 AM EST Office Visit [facility] [address] [place] [address] Name, MD Randal Palpitations (Primary Dx); Encounter for immunization from Last 3 Months Immunizations Name Administration Dates Next Due Hep B, adult 03/19/2012,07/06/2011,06/06/2011 Influenza High-dose Quadriva lent Preservative Free 10/03/2022,09/06/2021 Influenza injectable quadriv alent IIV4 with preservative 10/14/2018,10/15/2017,08/15/2016 Influenza injectable quadriv alent preservative free 08/27/2019,12/23/2015 Influenza, High Dose Seasona l, Preservative Free 09/23/2024 Influenza, IIV3, injectable 12/01/2008 Moderna Covid-19 Vaccine 6+ Bivalent 03/12/2023 Pneumococcal Conjugate PCV 20 03/31/2024 TD (adult), 2 Lf tetanus tox oid, preservative free, adsorbed 05/19/2003 Tdap 03/31/2024,07/16/2013 Zoster, Recombinant 07/20/2021 Social History Tobacco Use Types Packs/Day Years Used Date Smoking Tobacco: Never Passive Smoke Exposure: Never Smokeless Tobacco: Never Tobacco Cessation:Counseling Given: Not Answered Alcohol Use Standard Drinks/Week Comments Yes 0 [...] Orientation Straight 09/18/2022 10 :18 AM EDT Last Filed Vital Signs Vital Sign Reading [...] 12.8 oz) 12/10/2024 9:01 AM EST Height 157.5 cm (5' 2 ) 09/23/2024 11:1 6 AM EST Body Mass Index 22.46 09/23/2024 11:16 AM EST Plan of Treatment Upcoming Encounters Date Type Department Care Team (Late st Contact Info) Description 02/10/2025 9:15 AM EDT Office Visit [facility] [address] [place] [address] Name, MD Randal [address] [place] [address] Health Maintenance Due Date Last Done Comments CT Colonography 1955 FIT DNA/Cologuard 1955 FIT 1955 FOBT 1955 Sigmoidoscopy 1955 Hepatitis C Screening 1974 Zoster Vaccines (2 of 2) 09/14/2021 07/20/2021 Dental X-Ray: Full Mouth 06/02/2024 06/01/2021 COVID-19 Vaccine ( season) 2024 03/12/2023, 11/28/2021, 04/15/2021, Additional history exists Depression Screening 03/31/2025 03/31/2024, 03/31/20 SDOH Screening 03/31/2025 03/31/2024 Alcohol/Substance Use Screening 04/29/2025 04/29/2024 Mammogram 05/05/2025 05/05/2024, 04/19, 05/01/2023, Additional history exists Dental Oral Exam 05/09/2025 11/07/2024, 06/2023, 03/26/2023 Dental Prophylaxis 05/09/2025 11/07/2024, 1 11/26/2022, 03/12/2023 Tobacco Screening 11/07/2025 11/07/2024 Dental X-Ray: Bitewings 11/08/2025 11/07/2024, 03/12 RSV Patients and Patients Aged 60 years or older (1 - 1-dose 75+ series) 2031 Colonoscopy 08/31/2033 08/31/2023, 02/11/2018 Colorectal Cancer Screening 08/31/2033 DTaP/Tdap/Td Vaccines (3 - Td or Tdap) 03/31/2034 03/31/2024, 07/16/2013, 05/19/2003 Hepatitis B Vaccines Completed 03/19/2012, 07/06/2011, 06/06/2011 Pneumococcal Vaccine: 65+ Years Completed 03/31/2024 Influenza Vaccine Completed 09/23/2024, , 09/06/2021, Additional history exists HIB Vaccines Aged Out No longer eligi ble based on patient's age to complete this topic HPV Vaccines Aged Out No longer eligi ble based on patient's age to complete this topic Hepatitis A Vaccines Aged Out No long er eligible based on patient's age to complete this topic IPV Vaccines Aged Out No longer eligi ble based on patient's age to complete this topic Meningococcal Vaccine Aged Out No yesy ricardo eligible based on patient's age to complete this topic RSV under 20 months Aged Out No longe r eligible based on patient's age to complete this topic Rotavirus Vaccines Aged Out No longer eligible based on patient's age to complete this topic Procedures Procedure Name Priority Date/Time Associated Diagnosis Comments POCT URINALYSIS DIPSTICK Routine 12/10/2024 9:38 AM EST Recurrent UTI PERIODIC ORAL EVALUATION - ESTABLISHED PATIENT Routine 11/07/2024 8:00 AM EST TOPICAL APPLICATION OF FLUORIDE VARNISH Routine 11/07/2024 8:00 AM EST ORAL HYGIENE INSTRUCTIONS Routine 11/07/2024 8:00 AM EST Dental calculus Localized gingival recession Missing teeth, acquired Gingival bleeding BITEWINGS - 4 RADIOGRAPHIC IMAGES Routine 11/07/2024 8:00 AM EST Dental calculus Localized gingival recession Missing teeth, acquired Gingival bleeding ADJUNCTIVE GENERAL SERVICES - PROFESSIONAL VISITS - CASE PRESENTATION, SUBSEQUENT TO DETAILED AND EXTENSIVE TREATMENT PLANNING Routine 11/07/2024 8:00 AM EST Dental calculus Localized gingival recession Missing teeth, acquired Gingival bleeding Full PROPHYLAXIS - ADULT Routine 11/07/2024 8:00 AM EST Dental calculus Gingival bleeding ECG 12-LEAD Routine 09/23/2024 11:44 AM EST Palpitations BI MAMMOGRAM SCREENING TOMOSYNTHESIS BILATERAL Routine 05/05/2024 10:20 AM EDT HM COLONOSCOPY Routine 08/31/2023 from Last 3 Months or Most Recently Relevant to Health Maintenance Results * (ABNORMAL) POCT Urinalysis (12/10/2024 9:38 [...] Media Lot # [id number] Lot# Expiration Date [id number] Urine 12/10/2024 9:38 AM EST us Beth Beyer CNM POINT OF CARE TEST ENTER/ EDIT ORDERABLES Final Result * ECG 12 lead (09/23/2024 11:44 AM EST) Narrative Name, MD Randal - 09/23/2024 11:44 AM EST NSR, HR 63. NO ST-T changes us Randal Name ECG ORDERABLES Final Result * BI Mammogram Screening Tomosynthesis Bilateral (05/05/2024 10:20 AM EDT) Anatomical Region Laterality Modality Breast Bilateral Mammography 05/05/2024 10:2 0 AM EDT Narrative 06/02/2024 4:46 PM EDT ? [facility] [place] ? [address] ?[place] [address] ? Mammography Report ? Signed ? Patient: Yoly Bower ?MR#: [id number] ?? 73 ? : 1955 ?Acct:[id number] ? Age/Sex: 69 / F ?ADM Date: 06/17/24 ? Loc: HO.MAMMO ? Attending Dr: Randal Name MD ? Ordering Physician: Name,Randal MD ?Results: 1Negative ? Date of Service: /17/24 ?Follow Up: 1 Year From Orig ?? inal Mammogram ? Procedure(s): MM tomosynthesis screening BI ?? Accession Number(s): [id number] ? cc: Name,Randal GALLEGOS ? EXAMINATION: ?? MM SCREENING DIGITAL BREAST TOMOSYNTHESIS, BILATERAL ? CLINICAL INFORMATION: ? Screening. Asymptomatic. ? COMPARISON: ?? Mammography: This study is compared with prior exams dating back to ?? 2018. ? TECHNIQUE: ?? Digital breast tomosynthesis is performed in both the craniocaudal and ?? mediolateral oblique views along with computer-aided detection (CAD). ?? Synthesized 2D images are generated from the tomosynthesis. ? FINDINGS: ?? There are scattered areas of fibroglandular density (ACR BI-RADS breast ?? composition Category b). ? There are no significant masses, abnormal calcifications, or other ?? abnormalities. ? MM/MM tomosynthesis screening BI ?? IMPRESSION: ?? No mammographic evidence of malignancy. ? ASSESSMENT: ? BI-RADS BI-RADS 1 - Negative ? RECOMMENDATION: ?? Routine annual mammography screening. ? 1 year F/U ? This examination should not preclude the clinical evaluation of a ?? suspicious palpable abnormality. ? This patient's information was entered into a reminder system with a ?? target due date for their next mammogram. ? Dictated By: ?Ayanna Woodard MD ? Signed By: ?<Electronically signed by Ayanna Woodard MD in OV> ? 06/02/24 1643 ? DD/ 1020 ? TD/TT: ? Refrigeration Lead: ? Procedure Note Sahil, Image - 06/02/2024 [facility] [address] [place] [address] Dr. Eduardo, RENEE [address] Mammography Report Signed Patient: Jono Bower#: [id number] 73 : 6Acct:[id number] Age/Sex: 69 / FADM Date: 05/05/24 Loc: [facility] Attending Dr: Randal Garcia MD Ordering Physician: Name,Randal MDResults: 1Negative Date of Service: 05/05/24Follow Up: 1 Year From Orig inal Mammogram Procedure(s): MM tomosynthesis screening BI Accession Number(s): [id number] cc: Randal Garcia MD EXAMINATION: MM SCREENING DIGITAL BREAST TOMOSYNTHESIS, BILATERAL CLINICAL INFORMATION: Screening. Asymptomatic. COMPARISON: Mammography: This study is compared with prior exams dating back to 2018. TECHNIQUE: Digital breast tomosynthesis is performed in both the craniocaudal and mediolateral oblique views along with computer-aided detection (CAD). Synthesized 2D images are generated from the tomosynthesis. FINDINGS: There are scattered areas of fibroglandular density (ACR BI-RADS breast composition Category b). There are no significant masses, abnormal calcifications, or other abnormalities. MM/MM tomosynthesis screening BI IMPRESSION: No mammographic evidence of malignancy. ASSESSMENT: BI-RADS BI-RADS 1 - Negative RECOMMENDATION: Routine annual mammography screening. 1 year F/U This examination should not preclude the clinical evaluation of a suspicious palpable abnormality. This patient's information was entered into a reminder system with a target due date for their next mammogram. Dictated By: Ayanna Woodard MD Signed By: <Electronically signed by Ayanna Woodard MD in OV> 06/02/24 1643 DD/ 1020 TD/TT: Refrigeration Lead: Randal Garcia MD IMG BI PROCEDURES Final Result * Colonoscopy (08/31/2023) Colonoscopy Normal Normal us Teri Martin MD HEALTH MAINTENANCE Final Result from Last 3 Months or Most Recently Relevant to Health Maintenance Insurance - [place] [place] [address] [facility] Care Teams Terrazzo Installer Relationship Specialty Start Date End Date Name, MD Randal [address] [place] [address] PCP - General Family Medicine 04/11/16
--- OUTSIDE RECORDS SUMMARY | 2024-12-10 15:10 | XMS_ITS | Encounter Summary ---
Author Organization [facility] Address [address] [place] [address] [address] [place] [address] Care Team Providers Care Wood Pole Treater Name Role Phone Name, Randal GALLEGOS Primary Care Provider [phone] Encounter Details Date Type Department Care Team (Latest Contact Info) Description 04/28/2019 Abstract [facility] CONVERSIONS Dental, Provider, DDS Social History Tobacco Use Types Packs/Day Years Used Date Smoking Tobacco: Never Assessed Comments Unknown Sex and Gender Information Value Date Recorded Sex Assigned at Female 09/18/2022 10:18 AM EDT Legal Sex Female 10:18 AM EDT Gender Identity Female 09/18/2022 10:18 AM EDT Sexual Orientation Straight 09/18/2022 10 :18 AM EDT documented as of this encounter Plan of Treatment Upcoming Encounters Date Type Department Care Team (Late st Contact Info) Description 02/10/2025 9:15 AM EDT Office Visit [facility] MEDICINE [address] [place] [address] NameRandal MD [address] [place] [address] documented as of this encounter Visit Diagnoses Not on filedocumented in this encounter Care Teams Wood Pole Treater Relationship Specialty Start Date End Date Randal Garcia MD [address] [place] [address] PCP - General Family Medicine 04/11/16 documented as of this encounter
--- OUTSIDE RECORDS SUMMARY | 2024-12-10 15:10 | XMS_ITS | Clinical Summary ---
Author Organization [facility] Address [address] [place] [address] Care Team Providers Care Pitch Worker Name Role Phone Name, Randal GALLEGOS Primary Care Provider [phone] Medical History Medical History Date Comments Hyperlipidemia DX:Hyperlipidemi a Social History Tobacco Use Types Packs/Day Years Used Date Smoking Tobacco: Never Smokeless Tobacco: Never Alcohol Use Standard Drinks/Week Comments Never 0 (1 standard drink = 0.6 oz pur e alcohol) Sex and Gender Information Value Date Recorded Sex Assigned at Not on file Gender Identity Not on file Sexual Orientation Not on file Obstetrics History Last Filed Vital Signs Vital Sign Reading Time Taken Comments Blood Pressure - - Pulse - - Temperature - - Respiratory Rate - - Oxygen Saturation - - Inhaled Oxygen Concentration - - Weight 54.4 kg (120 lb) 07/03/2022 9:32 AM EDT Height 150 cm (4' 11.06 ) 07/03/2022 9:32 AM EDT Body Mass Index 24.19 07/03/2022 9:32 AM EDT Plan of Treatment Health Maintenance Due Date Last Done Comments Breast Cancer Screening 1955 DTaP,Tdap,and Td Vaccines (1 - Tdap) 1975 Zoster Vaccines (1 of 2) 2006 Pneumococcal Vaccine: 65+ Ye ars (1 of 1 - PCV) 2021 Colorectal Cancer Screening: Colonoscopy 10/21/2022 Depression Screening 10/21/2022 Falls Risk Assessment 10/21/2022 Hepatitis C Screening 10/21/2022 Osteoporosis Screening (Bone Density Screening) 10/21/2022 Social Influencers of Health Screening 10/21/2022 COVID-19 Vaccine (1 - 2023-2 5 season) 2024 Influenza Vaccine (#1) 2024 RSV Immunization Patients 60 + Years Old (1 - 1-dose 75+ series) 2031 HIB Vaccines Aged Out No longer eligi ble based on patient's age to complete this topic HPV Vaccines Aged Out No longer eligi ble based on patient's age to complete this topic Hepatitis A Vaccines Aged Out No long er eligible based on patient's age to complete this topic Hepatitis B Vaccines Aged Out No long er eligible based on patient's age to complete this topic IPV Vaccines Aged Out No longer eligi ble based on patient's age to complete this topic MMR Vaccines Aged Out No longer eligi ble based on patient's age to complete this topic Meningococcal ACWY Vaccine Aged Out N o longer eligible based on patient's age to complete this topic RSV Immunization Patients Un belkys 20 months Aged Out No longer eligible b ased on patient's age to complete this topic Varicella Vaccines Aged Out No longer eligible based on patient's age to complete this topic Care Teams Pitch Worker Relationship Specialty Start Date End Date Name, MD Randal [address] [place], [place] PCP - General Internal Medicine 05/30/22
--- OUTSIDE RECORDS SUMMARY | 2024-12-10 15:10 | XMS_ITS | Encounter Summary ---
Author Organization [employer] Address [address] [facility] [address] [place] [address] Care Team Providers Care Loose Hand Packer Name Role Phone Name, Randal GALLEGOS Primary Care Provider [phone] Reason for Visit * Reason Onset Date Comments dec recalls 11/27/2024 Encounter Details Date Type Department Care Team (Late st Contact Info) Description 11/27/2024 Telephone [facility] [address] [place], [place] [id number] Marisa Harper [place] dec recalls Social History Tobacco Use Types Packs/Day Years [...] your housing situation today? I have vashti carlosn 03/31/[address] you li [...] encounter Miscellaneous Notes * Telephone Encounter - Marisa Harper MA - 11/27/2024 9:35 AM EST T/C placed to pt. Scheduled recall. Pt agrees with plan. Reminder letter sent . documented in this encounter Plan of Treatment Upcoming Encounters Date Type Department Care Team (Late st Contact Info) Description 02/10/2025 9:15 AM EDT Office Visit [facility] [address] [place] [id number] Name, MD Randal [address] [place] [address] documented as of this encounter Visit Diagnoses Not on filedocumented in this encounter Additional Health Concerns Assessment Noted Time PHQ-9 Depression Total Score: 0 03/31/20 24 9:19 AM EDT documented as of this encounter Care Teams Loose Hand Packer Relationship Specialty Start Date End Date Name, MD Randal [address] [place] [address] PCP - General Family Medicine 04/11/16 documented as of this encounter
--- OUTSIDE RECORDS SUMMARY | 2024-12-10 15:10 | XMS_ITS | Encounter Summary ---
Author Organization [facility] Address [address] [place] [address] [address] [place] [address] Care Team Providers Care Deputy Commonwealth'S Attorney Name Role Phone Name, Randal GALLEGOS Primary Care Provider [phone] Encounter Details Date Type Department Care Team (Latest Contact Info) Description 06/02/2021 Abstract [facility] CONVERSIONS Dental, Provider, DDS Social History Tobacco [...] Description 02/10/2025 9:15 AM EDT Office Visit [facility] [address] [place] [address] NameRandal MD [address] [place] [address] documented as of this encounter Visit Diagnoses Not on filedocumented in this encounter Care Teams Deputy Commonwealth'S Attorney Relationship Specialty Start Date End Date NameRandal MD [address] [place] [address] PCP - General Family Medicine 04/11/16 documented as of this encounter
--- OUTSIDE RECORDS SUMMARY | 2024-12-10 15:10 | XMS_ITS | Encounter Summary ---
Author Organization [employer] Address [address] [facility] [address] [place] [address] Care Team Providers Care Mediation Commissioner Name Role Phone Name, Randal GALLEGOS Primary Care Provider [phone] Encounter Details Date Type Department Care Team ([facility] Contact Info) Description 04/12/2023 Abstract [facility] [address] [place] [address] Name, MD Randal [address] [place] [phone] Social History Tobacco Use Types Packs/Day Years Used Date Smoking Tobacco: Never Smokeless Tobacco: Never Alcohol Use Standard Drinks/Week Comments Defer 0 (1 standard drink = 0.6 oz pur e alcohol) PHQ-2 Answer Date Recorded Patient Health Questionnaire-2 [...] suspected to have Coronavirus/COVID-19? No / Unsure 03/26/2023 10:07 AM EDT documented as of this encounter Plan of Treatment Upcoming Encounters Date Type Department Care Team ([facility] Contact Info) Description 02/10/2025 9:15 AM EDT Office Visit [facility] [address] [place] [address] Name, MD Randal [address] [place] [address] documented as of this encounter Procedures Procedure Name Priority Date/Time Associated Diagnosis Comments COLONOSCOPY Routine 02/11/2018 11:51 AM EDT documented in this encounter Results * Colonoscopy (02/11/2018 11:51 AM EDT) Colonoscopy Normal Normal Narrative Tess Al - 02/11/2018 11:51 AM EDT Recommended 10 year follow up us Historical Provider HEALTH MAINTENANCE Final Result documented in this encounter Visit Diagnoses Not on filedocumented in this encounter Care Teams Mediation Commissioner Relationship Specialty Start Date End Date Name, MD Randal [address] [place] [address] PCP - General Family Medicine 04/11/16 documented as of this encounter
== END 2024-12-10 13:12 | disposition home or self-care (01) ==
LOC: HO.HHCLNP 13:11
PROVIDERS: Visit Provider Advanced Practice Midwife
DX: N39.0 Urinary tract infection, site not specified (principal)
CPT/HCPCS: 87086; 87088; 87186

== ENCOUNTER → 2025-05-13 10:00 | Outpatient (BNV) | payer OTHER, SELFPAY | PROVIDERS: PCP Internal Medicine Geriatric Medicine; Visit Provider Internal Medicine | DX: Z12.31 Encounter for screening mammogram for malignant neoplasm of breast (principal) | CPT/HCPCS: 77063; 77067 ==

== ENCOUNTER 2025-05-13 10:21 | Outpatient (REF) | payer OTHER, SELFPAY ==
--- OUTSIDE RECORDS SUMMARY | 2025-05-13 12:05 | XMS_ITS | Patient Health Record ---
Author Organization [facility] Address [address] [place] [address] Care Team Providers Care Non Clinical Advisor Name Role Phone Name Randal GALLEGOS Primary Care Provider Antoni Jackson Jr Unavailable Reason For Referral No Information Medications Medication SIG (Take, Route, Frequency, Duration) Notes Start Date End Date Status Ciclopirox 8 % 1 application to aff ected area Externally Once a day Activ e Tylenol Extra Strength 500 MG 1 tablets as needed Orally every 6 hrs Active Naproxen 500 MG 1 tablet with food o r milk as needed Orally Twice a day Active Loratadine 10 MG 1 tablet Orally Once a day Active Aquaphor - as directed Externally BID Active Benadryl 25 MG 1-2 capsule as neede d Orally every 6 hrs/prn Active Colyte with Flavor Packs 240 GM As directed Orally Over the specified time. for 1 day(s) Active Social History Tobacco Use: Social History Observation Description Date Details (start date - stop date) Never Smoker NA - NA Tobacco Use/Smoking Question Answer Notes Patient is a nonsmoker Alcohol Screen Question Answer Notes Did you have a drink contain ing alcohol in the past year? Yes How often did you have a dri nk containing alcohol in the past year? Monthly or less (1 point) How many drinks did you have on a typical day when you were drinking in the past year? 1 or 2 drinks (0 point) How often did you have 6 or more drinks on one occasion in the past year? Never (0 point) Points 1 Interpretation Negative Problems Problem Type SNOMED Code ICD Code Onset Dates Problem Status W/U Status Risk Notes Problem 225394603 Colon cancer screening (Z12.11) Active confirmed Problem 432936675 Change in bowel habits (R19.4) Active confirmed Plan Of Treatment Future Test Test Name Order Date COLONOSCOPY 11/07/2017 Insurance Providers Payer Name Payer Address Payer Phone Subscriber Number Group Number Insured Name Patient Relationship to Insured Coverage Start Date Coverage End Date MEDICAID OF [facility] [address] [place] [id number] SVEN LEMUS Self - patient is the insured Medical (General) History Medical History History ICD Code back pain latent tuberculosis, treated Surgical History Surgery Date(Month/Year) eye surgery cholecystectomy
== END 2025-05-13 10:22 | disposition home or self-care (01) ==
LOC: HO.MAMMO 10:21
PROVIDERS: PCP Internal Medicine Geriatric Medicine; Visit Provider Internal Medicine Geriatric Medicine
DX: Z12.31 Encounter for screening mammogram for malignant neoplasm of breast (principal)
CPT/HCPCS: 77063; 77067

== ENCOUNTER 2025-05-31 17:34 | Emergency (ER) | payer OTHER, SELFPAY ==
--- NOTE | ~2025-05-31 | XR_ITS ---
CLINICAL HISTORY: trauma r 3rd and 4th digit 3 view right hand Comparison: None provided Findings: Transverse nondisplaced fracture of the tuft of the distal phalanx of the 4th digit. Minimal degenerative changes of the wrist. No erosions. No radiopaque foreign body. IMPRESSION: Nondisplaced tuft fracture of the distal phalanx of the 4th digit. This document has been electronically signed by: Jason Modi MD on 05/31/2025 18:10:46
[2025-05-31 17:44] VITALS: BP 135/81; PULSE 86; RESP 16; TEMP 36.1; O2SAT 97; BMI 19.6
--- NOTE | 2025-05-31 17:44 | ED.GENADULT ---
HPI - General Adult General Chief complaint: Extremity Injury, Upper Stated complaint: Jammed fingers with garage door Time Seen by Provider: 05/31/25 17:47 Source: patient Limitations: language barrier (Nayla) History of Present Illness HPI narrative: 70-year-old female presents for evaluation of pain and swelling to her right 3rd and 4th digits. Patient states at approximately 2:00 p.m. today she was closing her garage door when her fingers got pinched between the door. She iced them and took ibuprofen. Family requested her to come to the emergency department since she is flying to [place] tomorrow. She is right-hand dominant. No paresthesias or paralysis. She reports pain, throbbing and a fullness sensation. Related Data Home Medications ?Medication ?Instructions ?Recorded ?Confirmed ascorbate calcium (vitamin C) 500 500 mg PO DAILY 09/22/20 11/06/23 mg tablet cholecalciferol (vitamin D3) 25 25 mcg PO DAILY 09/22/20 04/30/24 mcg (1,000 unit) capsule omega-3 fatty acids 1,000 mg 1,000 mg PO DAILY 09/22/20 04/30/24 capsule acetaminophen 500 mg tablet 500 mg PO Q6H PRN Pain 04/30/24 04/30/24 cetirizine 10 mg tablet 10 mg PO DAILY 04/30/24 04/30/24 conjugated estrogens 0.625 mg/gram 0.625 mg vaginal 3XW 04/30/24 04/30/24 vaginal cream (Premarin) diclofenac sodium 1 % topical gel 2 g topical QID 04/30/24 04/30/24 fluticasone propionate 50 1 spray intranasal BID 04/30/24 04/30/24 mcg/actuation nasal spray,suspension meclizine 25 mg tablet 25 mg PO BID PRN Vertigo 04/30/24 04/30/24 Previous Rx's ?Medication ?Instructions ?Recorded methylcellulose (laxative) 500 mg 500 mg PO BID #60 tabs 02/05/23 tablet (Citrucel) pantoprazole 40 mg tablet,delayed 40 mg PO DAILY #90 tabs 03/18/25 release Allergies Allergy/AdvReac Type Severity Reaction Status Date / Time No Known Allergies Allergy Verified 05/31/25 17:49 Review of Systems Review of Systems: Yes all other systems are reviewed and are negative Musculoskeletal: Musculoskeletal: Denies deformity, Denies stiffness and Reports tingling Neurologic: Reports tingling PMFSH Past Medical History Medical History Varicose vein of leg GERD (gastroesophageal reflux disease) Elevated cholesterol Inactive tuberculosis Joint pain Renal stone Osteoporosis Surgical History (Updated 05/19/24 @ 08:17 by Pati Espinoza RN) Hx of left cataract extraction History of esophagogastroduodenoscopy (EGD) Hx of colonoscopy History of eye surgery Hx laparoscopic cholecystectomy Family History Family History Mother HTN (hypertension) Brother HTN (hypertension) Sister HTN (hypertension) Social History Social History Household Members: Spouse Are you a primary personal caregiver to a significant other at home: No Alcohol intake: current Patient Tobacco Use Status: Former Tobacco user Tobacco use type: Cigarette Years Smoked: 10 Advance Directives: No Advance Directives Information Provided: No Do you have a plan to hurt others: No Plan Current occupational status: employed 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 Full range of motion of all digits. There is ecchymosis to the fat pad of the right, 3rd and 4th digits. There is no subungual hematoma. No erythema or streaking. There is mild diffuse tenderness. Capillary refills less than 2 seconds. Course Course Course Narrative: Fracture noted to the right 4th tuft. Nondisplaced. Bobby tape applied. Reviewed all discharge instructions with photographer motion picture Kylah. Also provided patient with copy of x-ray report as well as disc with images since the patient will be traveling to [place] for the next 3 months. Patient expresses understanding of all discharge instructions and has no further questions at this time. Orthopedic referral also provided. Medical Decision Making Medical Decision Making MDM Narrative: 70-year-old female presents for evaluation of right, 3rd and 4th digits trauma. Check x-ray. Differential Diagnosis Differential Diagnoses: The differential diagnosis associated with the presentation includes Fracture Dislocation Contusion Sprain Independent Interpretation I performed an independent interpretation of an: Plain X-Ray (+ tuft fx) Radiology Impression Discussion of test interpretation with radiology: I have reviewed the radiologist's reading. Radiologist Impression: [address] [address] XRay Report Signed Patient: Yoly Bower MR#: [id number] : 1955 Acct:[id number] Age/Sex: 70 / F ADM Date: 05/31/25 Loc: HO.ED Attending Dr: Ordering Physician: Gil Basurto Date of Service: 05/31/25 Procedure(s): XR hand RT min 3V Accession Number(s): [id number] cc: Name,Randal GALLEGOS; Gil Basurto~ CLINICAL HISTORY: trauma r 3rd and 4th digit 3 view right hand Comparison: None provided Findings: Transverse nondisplaced fracture of the tuft of the distal phalanx of the 4th digit. Minimal degenerative changes of the wrist. No erosions. No radiopaque foreign body. IMPRESSION: Nondisplaced tuft fracture of the distal phalanx of the 4th digit. This document has been electronically signed by: Jason Modi MD on 05/31/2025 18:10:46 Dictated By: Jason Modi MD Signed By: <Electronically signed by Jason Modi MD in OV> 05/31/251811 DD/ 09 TD/TT: 05/31/251809 Peanut Grader: Prescription Management I considered prescription management with: Pain Medication Discharge Plan Discharge Clinical Impression: Finger fracture, right Qualifiers: Encounter type: initial encounter Finger: ring finger Fracture type: closed Phalanx: distal Fracture alignment: nondisplaced Qualified Code(s): S62.664A - Nondisplaced fracture of distal phalanx of right ring finger, initial encounter for closed fracture Patient Disposition: Home, Self-Care Instructions: Finger Fracture (ED) Additional Instructions: Rest. Ice. Elevate. Avoid strenuous activity. Bobby tape for comfort. Tylenol or ibuprofen for pain. Follow up with orthopedic referral. Follow-up with your primary care provider. Call this week to schedule a follow-up appointment. Return to the emergency department if you have any worsening of symptoms, or any concerns. Get well soon! Prescriptions: No Action pantoprazole 40 mg tablet,delayed release (DR/EC) 40 mg PO DAILY Qty: 90 1RF acetaminophen 500 mg Tablet 500 mg PO Q6H PRN (Reason: Pain) cetirizine 10 mg tablet 10 mg PO DAILY meclizine 25 mg Tablet 25 mg PO BID PRN (Reason: Vertigo) Premarin 0.625 mg/gram Cream 0.625 mg VAGINAL 3XW Rx Instructions: off 5 days; repeat cycle fluticasone propionate [Flonase] 50 mcg/actuation [place],Suspension 1 spray INTRANASAL BID Rx Instructions: administer into each nostril diclofenac sodium 1 % Gel 2 g TOPICAL QID Rx Instructions: apply to single elbow, wrist or hand; for hand includes palm/fingers/back of hand omega-3 fatty acids 1,000 mg capsule 1,000 mg PO DAILY ascorbate calcium (vitamin C) 500 mg tablet 500 mg PO DAILY cholecalciferol (vitamin D3) 25 mcg (1,000 unit) capsule 25 mcg PO DAILY Citrucel 500 mg tablet 500 mg PO BID Qty: 60 5RF Referrals: Heike Hamm MD [Physician, Hand Surgery] Print Language: Paraguayan
[2025-05-31 18:58] VITALS: BP 135/81; PULSE 86; RESP 16; TEMP 36.1; O2SAT 97
== END 2025-05-31 18:59 | disposition home or self-care (01) ==
PROVIDERS: Emergency Provider Emergency Medicine; PCP Internal Medicine Geriatric Medicine
DX: S62.664A Nondisplaced fracture of distal phalanx of right ring finger, initial encounter for closed fracture (principal); M79.641 Pain in right hand; Y29.XXXA Contact with blunt object, undetermined intent, initial encounter; Y93.9 Activity, unspecified; Y92.9 Unspecified place or not applicable; Y99.8 Other external cause status; Z79.899 Other long term (current) drug therapy
CPT/HCPCS: 73130; 99282

== ENCOUNTER → 2025-05-31 17:46 | Outpatient (BNV) | payer OTHER, SELFPAY | PROVIDERS: Emergency Provider Emergency Medicine; PCP Internal Medicine Geriatric Medicine; Visit Provider Radiology Diagnostic Radiology | DX: S62.664A Nondisplaced fracture of distal phalanx of right ring finger, initial encounter for closed fracture (principal) | CPT/HCPCS: 73130 ==

== ENCOUNTER 2025-08-22 21:30 | Emergency (ER) | payer OTHER, SELFPAY ==
[2025-08-22 21:44] VITALS: BP 115/57; PULSE 79; RESP 14; TEMP 36.2; O2SAT 95; BMI 23.8
--- OUTSIDE RECORDS SUMMARY | 2025-08-22 22:05 | XMS_ITS | Encounter Summary ---
Author Organization [employer] [facility] Address [address] [facility] [address] [place] [address] Care Team Providers Care Office Secretary Name Role Phone Name, Randal GALLEGOS Primary Care Provider [phone] Encounter Details Date Type Department Care Team (Latest Contact Info) Description 06/02/2021 Abstract [facility] CONVERSIONS Dental, Provider, DDS Social History Tobacco Use Types Packs/Day Years Used Date Smoking Tobacco: Never Assessed Comments Unknown Sex and Gender Information Value Date Recorded Sex Assigned at Female 09/18/2022 10:18 AM EDT Legal Sex Female 10:18 AM EDT Gender Identity Female 09/18/2022 10:18 AM EDT Sexual Orientation Straight 09/18/2022 10 :18 AM EDT documented as of this encounter Plan of Treatment Not on file documented as of this encounter Visit Diagnoses Not on filedocumented in this encounter Care Teams Office Secretary Relationship Specialty Start Date End Date Name, MD Randal [address] [place] [address] PCP - General Family Medicine 04/11/16 documented as of this encounter
--- OUTSIDE RECORDS SUMMARY | 2025-08-22 22:05 | XMS_ITS | Clinical Summary ---
Demographics Address [address] [place] [address] [place] [address] Home Phone Work Phone Mobile Phone Email Address Preferred Language es Marital Status Adventism Affiliation Unknown Race Other Race Ethnic Group Unknown Author Organization [employer] Address [address] [facility] [address] [place] [address] Care Team Providers Care Narcotics Agent Name Role Phone Name, Randal GALLEGOS Primary Care Provider [phone] Allergies No known active allergies Medications meclizine (Antivert) 25 MG tablet TAKE 1 TABLET BY MOUTH TWICE DAILY NEEDED FOR DIZZINESS 2 Active Diclofenac Sodium 1 % gel APPLY TO THE AFFECTED AREA(S) TOPICALLY TWICE DAILY 100 g 2 3 Active fluticasone (Flonase) 50 MCG/ACT nasal sprayIndicatio ns:Post-nasal drip Administer 1-2 sprays into each nostril in the morning. Shake gently. Before first use, prime pump. After use, clean tip and replace cap. 16 g 2 4 Active Estrogens Conjugated (Premarin) 0.625 MG/GM creamIndicatio ns:Recurrent UTI Insert 1 each into the vagina See administration instructions. 0.5 to 1 g once daily for 2 weeks, then reduce dose and/or frequency to lowest effective dose (usual maintenance dose: 0.5 to 1 g one to 3 times/week) 30 g 3 5 Active pantoprazole (ProtoNix) 20 MG EC tablet Take 1 tablet (20 mg) by mouth before breakfast. 90 tablet 2 5 Active hydrocortisone 2.5 % cream Apply by topical route 1-2 times per day after shower or bath from the neck down (not on face). 60 g 1 5 Active cetirizine (ZyrTEC) 10 MG tablet TAKE 1 TABLET (10 MG) BY MOUTH ONCE PER DAY. 90 tablet 1 07/28/202 5 Active Active Problems Problem Noted Date Diagnosed Date Dental abscess 01/12/2025 Periodontal disease 01/12/2025 Localized gingival recession 11/07/2024 Missing teeth, acquired [...] Will refer if labs negative Fractured dental sikhism with loss of materi al 10/23/2023 Dental [...] Encounters Date Type Department Care Team Description 07/23/2025 Telephone [facility] MEDICINE [address] [place] [address] Name, MD Randal Nurse Triage 06/14/2025 Refill [facility] [address] [place] [address] Name, MD Randal 05/28/2025 Telephone [facility] [address] [place] [address] Name, MD Randal Results (Pt requesting 06/02/2025 mamogram results) from Last 3 Months Immunizations Immunization Administration Dates Next Due Hep B, adult [...] the past 12 months, has t he Comprehensive Care, gas, oil or water company threatened to [...] Sign Reading Time Taken Comments Blood Pressure 123/77 03/17/2025 9:36 AM EDT Pulse 71 03/17/2025 9:36 AM EDT Temperature 36.7 C (98.1 F) 03/17/2025 9:36 AM EDT Respiratory Rate 14 03/17/2025 9:36 AM EDT Oxygen Saturation 97% 03/17/2025 9:36 AM EDT Inhaled Oxygen Concentration - - Weight 55.2 kg (121 lb 9.6 oz) 03/17/2025 9:36 A M EDT Height 157.5 cm (5' 2 ) 03/17/2025 9:36 AM EDT Body Mass Index 22.24 03/17/2025 9:36 AM EDT Plan of Treatment Health Maintenance Due Date Last Done Comments CT Colonography 1956 FIT DNA/Cologuard 1955 FIT 1955 FOBT 1955 Sigmoidoscopy 1956 Alcohol/Substance Use Screening 1968 Hepatitis C Screening 1974 Zoster Vaccines (2 of 2) 09/14/2021 07/20/2021 Dental X-Ray: Full Mouth 06/02/2024 06/01/2021 Depression Screening 03/31/2025 03/31/2024, 03/31/20 SDOH Screening 03/31/2025 03/31/2024 Dental Oral Exam 05/09/2025 11/07/2024, 06/2023, 03/26/2023 Dental Prophylaxis 05/09/2025 11/07/2024, 1 11/26/2022, 03/12/2023 COVID-19 Vaccine ( season) 2025 03/12/2023, 11/28/2021, 04/15/2021, Additional history exists Influenza Vaccine (#1) 2025 , 10/03/2022, 09/06/2021, Additional history exists Dental X-Ray: Bitewings 11/08/2025 11/07/2024, 03/12 Tobacco Screening 03/17/2026 03/17/2025 Mammogram 05/13/2026 05/13/2025, 04/19, 05/01/2023, Additional history exists RSV Patients and Patients Aged 60 years or older (1 - 1-dose 75+ series) 2031 Colonoscopy 08/31/2033 08/31/2023, 02/11/2018 Colorectal Cancer Screening 08/31/2033 DTaP/Tdap/Td Vaccines (3 - Td or Tdap) 03/31/2034 03/31/2024, 07/16/2013, 05/19/2003 Hepatitis B Vaccines Completed 03/19/2012, 07/06/2011, 06/06/2011 Pneumococcal Vaccine: 50+ Years Completed 03/31/2024 HIB Vaccines Aged Out No longer eligi [...] patient's age to complete this topic Meningococcal B Vaccine Aged Out No l onger eligible based on patient's age to complete [...] Procedure Name Priority Date/Time Associated Diagnosis Comments XR HAND 3+ VIEWS RIGHT Routine 6:10 PM EDT BI MAMMOGRAM SCREENING TOMOSYNTHESIS BILATERAL Routine 05/13/2025 10:30 AM EDT Full PROPHYLAXIS - ADULT Routine 11/07/2024 8:00 AM EST Dental calculus Gingival bleeding BITEWINGS - 4 RADIOGRAPHIC IMAGES Routine 11/07/2024 8:00 AM EST Dental calculus Localized gingival recession Missing teeth, acquired Gingival bleeding PERIODIC ORAL EVALUATION - ESTABLISHED PATIENT Routine 11/07/2024 8:00 AM EST HM COLONOSCOPY Routine 08/31/2023 from Last 3 Months or Most Recently Relevant to Health Maintenance Results * XR Hand 3+ Views Right (05/31/2025 6:10 PM EDT) Anatomical Region Laterality Modality Upper Extremities, Hand Right Radiogra phic Imaging 05/31/2025 6:10 PM EDT Narrative 05/31/2025 6:12 PM EDT [place] [address] XRay Report Signed Patient: Yoly Bower MR#: [id number] 73 : 1955 Acct:[id number] Age/Sex: 70 / F ADM Date: 05/31/25 Loc: HO.ED Attending Dr: Ordering Physician: Gil Basurto Date of Service: 05/31/25 Procedure(s): XR hand RT min 3V Accession Number(s): [id number] cc: Jose,Randal GALLEGOS; Gil Basurto CLINICAL HISTORY: trauma r 3rd and 4th digit 3 view right hand Comparison: None provided Findings: Transverse nondisplaced fracture of the tuft of the distal phalanx of the 4th digit. Minimal degenerative changes of the wrist. No erosions. No radiopaque foreign body. IMPRESSION: Nondisplaced tuft fracture of the distal phalanx of the 4th digit. This document has been electronically signed by: Jason Modi MD on 05/31/2025 18:10:46 Dictated By: Jason Modi MD Signed By: <Electronically signed by Jason Modi MD in OV> 05/31/251811 DD/ 09 TD/TT: 05/31/251809 Firearms Instructor: Procedure Note Donotuseinterpreter, Image - 05/31/2025 [place] [address] XRay Report Signed Patient: Jono Bower#: [id number] 73 : 1955cct:[id number] Age/Sex: 70 / FADM Date: 05/31/25 Loc: .ED Attending Dr: Ordering Physician: Gil Basurto Date of Service: 05/31/25 Procedure(s): XR hand RT min 3V Accession Number(s): [id number] cc: NameRandal MD; Gil Basurto CLINICAL HISTORY: trauma r 3rd and 4th digit 3 view right hand Comparison: None provided Findings: Transverse nondisplaced fracture of the tuft of the distal phalanx of the 4th digit. Minimal degenerative changes of the wrist. No erosions. No radiopaque foreign body. IMPRESSION: Nondisplaced tuft fracture of the distal phalanx of the 4th digit. This document has been electronically signed by: Jason Modi MD on 05/31/2025 18:10:46 Dictated By: Jason Modi MD Signed By: <Electronically signed by Jason Modi MD in OV> 05/31/251811 DD/ 09 TD/TT: 05/31/251809 Firearms Instructor: [facility] External Provider IMG XR PROCEDURES Edited Result - Final * BI Mammogram Screening Tomosynthesis Bilateral (05/13/2025 10:30 AM EDT) Anatomical Region Laterality Modality Breast Bilateral Mammography 05/13/2025 10:3 0 AM EDT Narrative 05/30/2025 3:12 PM EDT [address] [place] [address] Mammography Report Signed Patient: Yoly Bower MR#: [id number] 73 : 1955 Acct:[id number] Age/Sex: 70 / F ADM Date: 05/13/25 Loc: HO.MAMMO Attending Dr: Randal Garcia MD Ordering Physician: Randal Garcia MD Results: 1Negative Date of Service: 05/13/25 Follow Up: 1 Year From Orig inal Mammogram Procedure(s): MM tomosynthesis screening BI Accession Number(s): [id number] cc: Randal Garcia MD EXAMINATION: MM SCREENING DIGITAL BREAST TOMOSYNTHESIS, BILATERAL CLINICAL INFORMATION: Screening. Asymptomatic. COMPARISON: Mammography: Comparison is made with available priors TECHNIQUE: Digital breast mammography with tomosynthesis is performed in both the craniocaudal and mediolateral oblique views along with computer-aided detection (CAD). FINDINGS: The breasts are heterogeneously dense, which may obscure small masses (ACR BI-RADS breast composition Category c). There are no significant masses, abnormal calcifications, [...] target due date for their next mammogram. Electronically signed by: Anabelle Bullard DO 05/30/2025 03:08 PM EDT Dictated By: Anabelle Bullard DO Signed By: <Electronically signed by Anabelle Bullard DO in OV> 05/30/25 1508 DD/ 1030 TD/TT: 05/13/25 1050 Firearms Instructor: Procedure Note Julioter, Image - 05/30/[address] [place] [address] Mammography Report Signed Patient: Yoly BowreMR#: [id number] 73 : 6Acct:[id number] Age/Sex: 70 / FADM Date: 05/13/25 Loc: HO.MAMMO Attending Dr: Randal Garcia MD Ordering Physician: Randal Garcia MDResults: 1Negative Date of Service: 05/13/25Follow Up: 1 Year From Orig ina Mammogram Procedure(s): MM tomosynthesis screening BI Accession Number(s): [id number] cc: Randal Garcia MD EXAMINATION: MM SCREENING DIGITAL BREAST TOMOSYNTHESIS, BILATERAL CLINICAL INFORMATION: Screening. Asymptomatic. COMPARISON: Mammography: Comparison is made with available priors TECHNIQUE: Digital breast mammography with tomosynthesis is performed in both the craniocaudal and mediolateral oblique views along with computer-aided detection (CAD). FINDINGS: The breasts are heterogeneously dense, which may obscure small masses (ACR BI-RADS breast composition Category c). There are no significant masses, abnormal calcifications, [...] target due date for their next mammogram. Electronically signed by: Anabelle Bullard DO 05/30/2025 03:08 PM EDT Dictated By: Anabelle Bullard DO Signed By: <Electronically signed by Anabelle Bullard DO in OV> 05/30/25 1508 DD/ 1030 TD/TT: 05/13/25 1050 Firearms Instructor: Randal Garcia MD IMG BI PROCEDURES Edited Result - Final * Hm Colonoscopy (08/31/2023) Colonoscopy Normal Normal us Teri Martin MD HEALTH MAINTENANCE Final Result from Last 3 Months or Most Recently Relevant to Health Maintenance Insurance [employer] [facility] [facility] SKILLED NURSING OPTIONS (HMO D-SNP) [facility] Care Teams Narcotics Agent Relationship Specialty Start Date End Date Name, MD Randal [address] [place] [address] PCP - General Family Medicine 04/11/16
--- OUTSIDE RECORDS SUMMARY | 2025-08-22 22:05 | XMS_ITS | Patient Health Record ---
Author Organization [facility] Address [address] [place] [address] Care Team Providers Care Shade Matcher Name Role Phone Name Randal GALLEGOS Primary [...] Problem Status W/U Status Risk Notes Problem [id number] Colon cancer screening (Z12.11) Active confirmed Problem [id number] Change in bowel habits (R19.4) Active confirmed Plan Of Treatment Future Test Test Name Order Date COLONOSCOPY 11/07/2017 Insurance Providers Payer Name Payer Address Payer Phone Subscriber Number Group Number Insured Name Patient Relationship to Insured Coverage Start Date Coverage End Date [facility] [address] [place] [id number] SVEN LEMUS Self - patient is the insured Medical (General) History Medical History History ICD Code back pain latent tuberculosis, treated Surgical History Surgery Date(Month/Year) eye surgery cholecystectomy
--- OUTSIDE RECORDS SUMMARY | 2025-08-22 22:05 | XMS_ITS | Encounter Summary ---
Demographics Address [address] [place] [address] [place] [address] Home Phone Work Phone Mobile Phone Email Address Preferred Language es Marital Status Gnosticist Affiliation Unknown Race Other Race Ethnic Group Unknown Author Organization [employer] Address [address] [facility] [address] [place] [address] Care Team Providers Care Wireless Network Engineer Name Role Phone Name, Randal GALLEGOS Primary Care Provider [phone] Encounter Details Date Type Department Care Team ([facility] st Contact Info) Description 03/21/2023 Abstract [facility] [address] [place], [place] [id number] Name, MD Randal [address] [place], [place] [id number] Social History Tobacco Use Types Packs/Day Years [...] on filedocumented in this encounter Care Teams Wireless Network Engineer Relationship Specialty Start Date End Date Name, MD Randal [address] [place], [place] [id number] PCP - General Family Medicine 04/11/16 documented as of this encounter
--- OUTSIDE RECORDS SUMMARY | 2025-08-22 22:05 | XMS_ITS | Encounter Summary ---
Author Organization [facility] Address [address] [facility] [address] [place] [address] Care Team Providers Care Collar Feller Name Role Phone Name, Randal GALLEGOS Primary Care Provider [phone] Encounter Details Date Type Department Care Team (Latest Contact Info) Description 04/28/[address] [facility] CONVERSIONS Dental, Provider, DDS Social History [...] on filedocumented in this encounter Care Teams Collar Feller Relationship Specialty Start Date End Date Name, MD Randal [address] [place] [address] PCP - General Family Medicine 04/11/16 documented as of this encounter
--- OUTSIDE RECORDS SUMMARY | 2025-08-22 22:05 | XMS_ITS | Clinical Summary ---
Author Organization [employer] [facility] Address [address] [place] [address] Care Team Providers Care Prep Cook Name Role Phone Name, Randal GALLEGOS Primary Care Provider [phone] Medical History Medical History Date Comments Hyperlipidemia DX:Hyperlipidemi a Social History Tobacco Use Types Packs/Day Years Used Date Smoking Tobacco: Never Smokeless Tobacco: Never Alcohol Use Standard Drinks/Week Comments Never 0 (1 standard drink = 0.6 oz pur e alcohol) Comments Unknown Sex and Gender Information Value Date Recorded Sex Assigned at Not on file Legal Sex Female 6:14 PM EST Gender Identity Not on file Sexual Orientation [...] Last Done Comments Breast Cancer Screening 1955 Colorectal Cancer Screening: Colonoscopy 1955 DTaP,Tdap,and Td Vaccines (1 - Tdap) 1975 Pneumococcal Vaccine: 50+ Ye ars (1 of 1 - PCV) 2006 Zoster Vaccines (1 of 2) 2006 Falls Risk Assessment 10/21/2022 Hepatitis C Screening 10/21/2022 Osteoporosis Screening (Bone Density Screening) 10/21/2022 Social Influencers of Health Screening 10/21/2022 Depression Screening 11/19/2024 COVID-19 Vaccine (1 - 2023-2 5 season) 2025 Influenza Vaccine (#1) 2025 RSV Immunization Adult Patie nts (1 - 1-dose 75+ series) 2031 HIB [...] age to complete this topic Care Teams Prep Cook Relationship Specialty Start Date End Date Name, MD Randal [address] [place], [place] PCP - General Internal Medicine 05/30/22
--- OUTSIDE RECORDS SUMMARY | 2025-08-22 22:05 | XMS_ITS | Encounter Summary ---
Demographics Address [address] [place] [address] [place] [address] Home Phone Work Phone Mobile Phone Email Address Preferred Language es Marital Status Catholic Affiliation Unknown Race Other Race Ethnic Group Unknown Author Organization [employer] Address [address] [facility] [address] [place] [address] Care Team Providers Care High School Academic Coach Name Role Phone Name, Randal GALLEGOS Primary Care Provider [phone] Encounter Details Date Type Department Care Team ([facility] st Contact Info) Description 04/12/2023 Abstract [facility] MEDICINE [address] [place] [address] Name, MD Randal [address] [place] [address] Social History Tobacco Use Types Packs/Day Years [...] on file documented as of this encounter Procedures Procedure Name Priority Date/Time Associated Diagnosis Comments HM COLONOSCOPY Routine 02/11/2018 11:51 AM EDT documented in this encounter Results * Hm Colonoscopy (02/11/2018 11:51 AM EDT) Colonoscopy Normal Normal Narrative Tess Al - 02/11/2018 11:51 AM EDT Recommended 10 year follow up us Historical Provider HEALTH MAINTENANCE Final Result documented in this encounter Visit Diagnoses Not on filedocumented in this encounter Care Teams High School Academic Coach Relationship Specialty Start Date End Date Name, MD Randal [address] [place] [address] PCP - General Family Medicine 04/11/16 documented as of this encounter
--- NOTE | 2025-08-22 23:50 | ED_ITS ---
HPI - Allergic Reaction General Chief complaint: Allergic Reaction Stated complaint: all over body rash Time Seen by Provider: 08/22/25 23:30 Source: patient and field case manager (Lithuanian speaking) Mode of arrival: ambulatory Limitations: language barrier (Lithuanian) History of Present Illness ED Provider: BUSTER FIERRO PA-C HPI narrative: 70 year old Lithuanian-speaking female presents to the emergency department for evaluation of diffuse body rash which began on waking this morning around 0800. Denies any known allergies. She states she was recently in [place], returned 2 days ago. While there, she was diagnosed with a UTI and started on an antibiotic. She does not recall the name of this antibiotic. Admits to completing a 4 day course, her last dose was yesterday. Denies any known allergies to medications. No other new medications. Reports waking up this morning with itchy rash which began on her left arm. Rash has now spread to her torso in all 4 extremities. Reports the rash is itchy. Denies any known insect or tick bites. Denies new lotions, soaps, detergents. Denies fever, chills, nausea or vomiting, abdominal pain, difficulty breathing, chest pain. Related Data Home Medications ?Medication ?Instructions ?Recorded ?Confirmed ascorbate calcium (vitamin C) 500 500 mg PO DAILY 03/0811/06/23 mg tablet cholecalciferol (vitamin D3) 25 25 mcg PO DAILY 04/30/24 mcg (1,000 unit) capsule omega-3 fatty acids 1,000 mg 1,000 mg PO DAILY 0 04/30/24 capsule acetaminophen 500 mg tablet 500 mg PO Q6H PRN Pain 11/1104/30/24 cetirizine 10 mg tablet 10 mg PO DAILY 04/30/2404/19 conjugated estrogens 0.625 mg/gram 0.625 mg vaginal 3X W 04/30/24 04/30/24 vaginal cream (Premarin) diclofenac sodium 1 % topical gel 2 g topical QID 04/1904/30/24 fluticasone propionate 50 1 spray intranasal BID 04/3004/30/24 mcg/actuation nasal spray,suspension meclizine 25 mg tablet 25 mg PO BID PRN Vertigo 11/1104/30/24 Previous Rx's ?Medication ?Instructions ?Recorded methylcellulose (laxative) 500 mg 500 mg PO BID #60 ta bs 02/05/23 tablet (Citrucel) pantoprazole 40 mg tablet,delayed 40 mg PO DAILY #90 t abs 03/18/25 release diphenhydramine HCl 50 mg tablet 50 mg PO Q8H PRN itch ing #30 tabs 08/22/25 (Benadryl Allergy) prednisone 50 mg tablet 50 mg PO DAILY 5 days #5 tab s 08/22/25 Allergies Allergy/AdvReac Type Severity Reaction Status Date / Time No Known Allergies Allergy Verified 08/22/25 21:52 Review of Systems Review of Systems: Yes all other systems are reviewed and are negative PMFSH Past Medical History Attestation statement: The following information was validated with the patient. Source: old records reviewed and nursing notes reviewed Medical History Varicose vein of leg GERD (gastroesophageal reflux disease) Elevated cholesterol Inactive tuberculosis Joint pain Renal stone Osteoporosis Surgical History Hx of left cataract extraction History of esophagogastroduodenoscopy (EGD) Hx of colonoscopy History of eye surgery Hx laparoscopic cholecystectomy Family History Family History Mother HTN (hypertension) Brother HTN (hypertension) Sister HTN (hypertension) Social History Social History Household Members: Spouse Are you a primary furnace caretaker to a significant other at home: No Alcohol intake: current Patient Tobacco Use Status: Former Tobacco user Tobacco use type: Cigarette Years Smoked: 10 Advance Directives: No Advance Directives Information Provided: No Do you have a plan to hurt others: No Plan Current occupational status: employed 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 Skin: +diffuse erythematous morbilliform rash noted to torso, all 4 extremities. No sloughing. Spares palms/soles, web spaces, mucous membranes. Non dermatomal. No target lesions. Head: Normocephalic, atraumatic. EENT: Hearing is intact b/l. Conjunctiva clear. Sclera is anicteric. PERRLA. EOM intact. Moist mucous membranes.? Cardiac: Chest wall symmetric. RRR Lungs: Normal respiratory effort without accessory muscle use. CTA bilaterally. No rales, rhonchi, or wheezes.? Abdomen: Soft, non-tender, non-distended. No rebound tenderness or guarding. Positive BS x4. Neuro: AOx3. Normal speech. Ambulating with steady gait. Psych: Appropriate mood and affect. Responds appropriately to questions. Medical Decision Making Medical Decision Making [facility] Narrative: This is a 70 yo patient who presents with rash consistent w/ drug eruption. Differential diagnosis includes contact/atopic/eczematous dermatitis, psoriasis. History and exam findings not consistent with lyme/tick bourne illness, herpes zoster/simplex, scabies, HFM, dangerous etiologies of rash such as SJS/TEN, or secondary dangerous causes such as petechial rashes from thrombocytopenia or rickettsial infections.? Plan at this time is to treat symptomatically, instruct to follow up with PCP. Advised to discontinue antibiotic. States her last dose was yesterday. Differential Diagnosis Differential Diagnoses: The differential diagnosis associated with the presentation includes as above. Admission/Observation not indicated. Prescription Management I considered prescription management with: Other (Prednisone, Benadryl) Social Determinants Patient?s care significantly limited by Social Determinants of Health including: Other Social Determinant of Health Critical Care Time Critical Care Time Critical Care Time: No Discharge Plan Discharge Clinical Impression: Drug eruption Patient Disposition: Home, Self-Care Instructions: Acute Rash (ED) Additional Instructions: You were evaluated in the ED today for all-over body rash. I have suspicion that you are reacting to the antibiotic you were recently placed on. STOP TAKING THIS ANTIBIOTIC. I am sending a 5 day course of prednisone to your pharmacy. Take this as prescribed. Continue oral Benadryl every 8 hours as needed for itching. Follow up with your primary care provider. Return with any new or worsening symptoms. In the case of an emergency call 911. Prescriptions: New Benadryl Allergy 50 mg tablet 50 mg PO Q8H PRN (Reason: itching) Qty: 30 0RF prednisone 50 mg tablet 50 mg PO DAILY 5 Days Qty: 5 0RF No Action pantoprazole 40 mg tablet,delayed release (DR/EC) 40 mg PO DAILY Qty: 90 1RF acetaminophen 500 mg Tablet 500 mg PO Q6H PRN (Reason: Pain) cetirizine 10 mg tablet 10 mg PO DAILY meclizine 25 mg Tablet 25 mg PO BID PRN (Reason: Vertigo) Premarin 0.625 mg/gram Cream 0.625 mg VAGINAL 3XW Rx Instructions: off 5 days; repeat cycle fluticasone propionate [Flonase] 50 mcg/actuation [place],Suspension 1 spray INTRANASAL BID Rx Instructions: administer into each nostril diclofenac sodium 1 % Gel 2 g TOPICAL QID Rx Instructions: apply to single elbow, wrist or hand; for hand includes palm/fingers/back of hand omega-3 fatty acids 1,000 mg capsule 1,000 mg PO DAILY ascorbate calcium (vitamin C) 500 mg tablet 500 mg PO DAILY cholecalciferol (vitamin D3) 25 mcg (1,000 unit) capsule 25 mcg PO DAILY Citrucel 500 mg tablet 500 mg PO BID Qty: 60 5RF Referrals: Yang Claire MD [Physician, Allergy & Immunology] Name,MD Randal [Primary Care Provider, Internal Medicine] Print Language: Lithuanian
[2025-08-23 00:08] VITALS: BP 115/57; PULSE 79; RESP 14; TEMP 36.2; O2SAT 95
== END 2025-08-23 00:09 | disposition home or self-care (01) ==
PROVIDERS: Emergency Provider Emergency Medicine; PCP Internal Medicine Geriatric Medicine
DX: L23.89 Allergic contact dermatitis due to other agents (principal); T36.95XA Adverse effect of unspecified systemic antibiotic, initial encounter; Z79.899 Other long term (current) drug therapy; Z87.891 Personal history of nicotine dependence
CPT/HCPCS: 99282; 99283

== ENCOUNTER 2025-08-30 13:13 | Emergency (ER) | payer OTHER, SELFPAY ==
[2025-08-30 13:31] VITALS: BP 138/77; PULSE 75; RESP 14; TEMP 36.4; O2SAT 94; BMI 22.9
--- NOTE | 2025-08-30 13:31 | ED.GENADULT ---
HPI - General Adult General Chief complaint: Urogenital-Female Stated complaint: vaginal infection Time Seen by Provider: 08/30/25 16:01 Source: patient Mode of arrival: ambulatory Limitations: language barrier History of Present Illness ED Provider: Dr. Tucker HPI narrative: 70-year-old female history of UTI, she states she was improved where she took an unknown antibiotic for 4 days. She developed a side effect therefore she stopped taking the antibiotic. She came here for allergic reaction to this antibiotic. Patient stated her dysuria returned last night. She is having pain when she urinates. No further symptoms no fever no flank pain. Related Data Home Medications ?Medication ?Instructions ?Recorded ?Confirmed ascorbate calcium (vitamin C) 500 500 mg PO DAILY 09/22/20 11/06/23 mg tablet cholecalciferol (vitamin D3) 25 25 mcg PO DAILY 09/22/20 04/30/24 mcg (1,000 unit) capsule omega-3 fatty acids 1,000 mg 1,000 mg PO DAILY 09/22/20 04/30/24 capsule acetaminophen 500 mg tablet 500 mg PO Q6H PRN Pain 04/30/24 04/30/24 cetirizine 10 mg tablet 10 mg PO DAILY 04/30/24 04/30/24 conjugated estrogens 0.625 mg/gram 0.625 mg vaginal 3XW 04/30/24 04/30/24 vaginal cream (Premarin) diclofenac sodium 1 % topical gel 2 g topical QID 04/30/24 04/30/24 fluticasone propionate 50 1 spray intranasal BID 04/30/24 04/30/24 mcg/actuation nasal spray,suspension meclizine 25 mg tablet 25 mg PO BID PRN Vertigo 04/30/24 04/30/24 Previous Rx's ?Medication ?Instructions ?Recorded methylcellulose (laxative) 500 mg 500 mg PO BID #60 tabs 02/05/23 tablet (Citrucel) pantoprazole 40 mg tablet,delayed 40 mg PO DAILY #90 tabs 03/18/25 release diphenhydramine HCl 50 mg tablet 50 mg PO Q8H PRN itching #30 tabs 08/22/25 (Benadryl Allergy) prednisone 50 mg tablet 50 mg PO DAILY 5 days #5 tabs 08/22/25 cephalexin 500 mg capsule 500 mg PO Q8H 7 days #21 caps 08/30/25 Allergies Allergy/AdvReac Type Severity Reaction Status Date / Time No Known Allergies Allergy Verified 08/30/25 13:36 Review of Systems Review of Systems: Pertinent review of systems as mentioned in HPI. All other system otherwise negative. [facility] Past Medical History [facility] Narrative: None Medical History Varicose vein of leg GERD (gastroesophageal reflux disease) Elevated cholesterol Inactive tuberculosis Joint pain Renal stone Osteoporosis Surgical History Hx of left cataract extraction History of esophagogastroduodenoscopy (EGD) Hx of colonoscopy History of eye surgery Hx laparoscopic cholecystectomy Family History Family History Mother HTN (hypertension) Brother HTN (hypertension) Sister HTN (hypertension) Social History Social History Household Members: Spouse Are you a primary health care / medical job titles to a significant other at home: No Alcohol intake: current Patient Tobacco Use Status: Former Tobacco user Tobacco use type: Cigarette Years Smoked: 10 Advance Directives: No Advance Directives Information Provided: Yes Do you have a plan to hurt others: No Plan Current occupational status: employed 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 Physical Exam ED Exam Exam: General: Pleasant, no distress, interacting appropriately Head: Normacephalic, atraumatic ENT: oral mucosa moist, neck supple, no tracheal deviation Cardiovascular: regular rate, regular rhythm, no murmurs, rubbing, gallops Respiratory: CTAB, no wheeze, rales, rhonchi Gastrointestinal: Soft, non distended, non tender, non guarding, no CVA tenderness Neurological: Awake and alert, no facial droop noted Skin: Warm and dry Psychiatric: Appropriate mood and thoughts Vital Signs: Vital Signs - 24 hr 08/30/25 13:31 08/30/25 16:40 Temperature 97.6 F 98.2 F Pulse Rate 75 70 Respiratory Rate 14 15 Blood Pressure 138/77 125/67 Pulse Oximetry 94 97 Oxygen Delivery Method Room Air Room Air BMI result Body Mass Index 22.9 Course Course Course Narrative: Rapid medical examination performed in triage by Nu Gomez PA-C. Patient is a 70 year old assigned female at presenting to the emergency department with continued concerns of urinary tract infection. Patient states that she is having pain with itching. Patient states that she is having vaginal pain. Patient states that she was on an antibiotic in [place] and had an allergic reaction so she was seen here on 08/22 and started on a different antibiotic which she finished but she believes the symptoms have returned. Detailed physical exam and review of systems are deferred to the information security analyst. UA ordered. Patient placed back in the waiting room pending room availability and results. Medications Administered Discontinued Medications Generic Name Dose Route Start Last Admin Trade Name Freq PRN Reason Stop Dose Admin Cephalexin HCl 500 mg 08/30/25 16:19 08/30/25 16:28 Cephalexin 500 Mg Capsule PO 08/30/25 16:20 500 mg ONCE ONE Administration Medical Decision Making Medical Decision Making [facility] Narrative: 70-year-old female presented hospital today for evaluation of dysuria. Patient is likely did not complete her antibiotic course. Had return of UTI. UA does show signs of UTI. She does not appear to be sepsis. We will plan to trial patient on some Keflex here and watch her for any reaction. Patient has tolerated Keflex well. We will plan to discharge patient with a course of Keflex to take. Low suspicion for pyelonephritis. Patient appears to be well Differential Diagnosis Differential Diagnoses: The differential diagnosis associated with the presentation includes UTI, pyelonephritis, dysuria Lab Data [facility] Lab Attestation statement: I reviewed the patient's lab results. Labs: Lab Results 08/30/25 Range/Units 13:44 Urine Color Yellow Urine Appearance Clear Urine pH 6.5 (5.0-9.0) Ur Specific [place] 1.010 (1.005-1.025) Urine Protein Negative (Neg-Trace) mg/dL Urine Glucose (UA) Negative (Negative) mg/dL Urine Ketones Negative (Negative) mg/dL Urine Blood Moderate (2+) H (Negative) Urine Nitrite Negative (Negative) Ur Leukocyte Esterase Large (3+) H (Negative) Urine RBC 11-20 H (0-2) /HPF Urine WBC >50 H (0-5) /HPF Ur Squamous Epith Cells 0-2 (0-2) /HPF Urine Bacteria None Seen (None Seen) Hyaline Casts 0-2 (0-2) /LPF Prescription Management I considered prescription management with: Antibiotic Discharge Plan Discharge Clinical Impression: Acute UTI Patient Disposition: Home, Self-Care Instructions: Urinary Tract Infection in Women (ED) Prescriptions: New cephalexin 500 mg capsule 500 mg PO Q8H 7 Days Qty: 21 0RF No Action pantoprazole 40 mg tablet,delayed release (DR/EC) 40 mg PO DAILY Qty: 90 1RF acetaminophen 500 mg Tablet 500 mg PO Q6H PRN (Reason: Pain) cetirizine 10 mg tablet 10 mg PO DAILY meclizine 25 mg Tablet 25 mg PO BID PRN (Reason: Vertigo) Premarin 0.625 mg/gram Cream 0.625 mg VAGINAL 3XW Rx Instructions: off 5 days; repeat cycle fluticasone propionate [Flonase] 50 mcg/actuation [place],Suspension 1 spray INTRANASAL BID Rx Instructions: administer into each nostril diclofenac sodium 1 % Gel 2 g TOPICAL QID Rx Instructions: apply to single elbow, wrist or hand; for hand includes palm/fingers/back of hand Benadryl Allergy 50 mg tablet 50 mg PO Q8H PRN (Reason: itching) Qty: 30 0RF prednisone 50 mg tablet 50 mg PO DAILY 5 Days Qty: 5 0RF omega-3 fatty acids 1,000 mg capsule 1,000 mg PO DAILY ascorbate calcium (vitamin C) 500 mg tablet 500 mg PO DAILY cholecalciferol (vitamin D3) 25 mcg (1,000 unit) capsule 25 mcg PO DAILY Citrucel 500 mg tablet 500 mg PO BID Qty: 60 5RF Print Language: Pashto
[2025-08-30 13:52] LABS: Appearance Urine Clear; Glucose Urine UA Negative (Negative); PH 6.5 (5.0-9.0); Specific Gravity - Urine 1.010 (1.005-1.025); UMIC TRIGGER UACC YES
[2025-08-30 13:57] LABS: UACC Culture Trigger YES
--- OUTSIDE RECORDS SUMMARY | 2025-08-30 15:30 | XMS_ITS | Encounter Summary ---
Author Organization [employer] [facility] Address [address] [facility] [address] [place] [address] Care Team Providers Care Punch Out Crew Member Name Role Phone Name, Randal GALLEGOS Primary Care Provider [phone] Encounter Details Date Type Department Care Team (Latest Contact Info) Description 04/28/2019 Abstract [facility] CONVERSIONS Dental, Provider, DDS Social History [...] on filedocumented in this encounter Care Teams Punch Out Crew Member Relationship Specialty Start Date End Date Name, MD Randal [address] [place] [address] PCP - General Family Medicine 04/11/16 documented as of this encounter
--- OUTSIDE RECORDS SUMMARY | 2025-08-30 15:30 | XMS_ITS | Encounter Summary ---
Author Organization [employer] Address [address] [facility] [address] [place] [address] Care Team Providers Care Entry Tech Name Role Phone Name, Randal GALLEGOS Primary Care Provider [phone] Reason for Visit * Reason Onset Date Comments Med Refill 08/25/2025 Encounter Details Date Type Department Care Team ([facility] st Contact Info) Description 08/25/2025 Refill [facility] MEDICINE [address] [place] [address] Name, MD Randal [address] [place] [address] Social History Tobacco Use Types Packs/Day Years [...] encounter Miscellaneous Notes * Telephone Encounter - Olivia Simpson LPN - 08/25/2025 12:56 PM EDT Medication pended if agreeable. Last seen 08/24/25. * Telephone Encounter - Nimesh Harris - 08/25/2025 12:52 PM EDT Patient in requesting med refill for Ft Ear Wax Removal 6.5% documented in this encounter Plan of Treatment Not on file documented as of this encounter Visit Diagnoses Not on filedocumented in this encounter Additional Health Concerns Assessment Noted Time PHQ-9 Depression Total Score: 0 03/31/20 24 9:19 AM EDT documented as of this encounter Care Teams Entry Tech Relationship Specialty Start Date End Date Name, MD Randal [address] [place] [address] PCP - General Family Medicine 04/11/16 documented as of this encounter
--- OUTSIDE RECORDS SUMMARY | 2025-08-30 15:30 | XMS_ITS | Encounter Summary ---
Author Organization [employer] [facility] Address [address] [facility] [address] [place] [address] Care Team Providers Care Mat Man Name Role Phone Name, Randal GALLEGOS Primary Care Provider [phone] Encounter Details Date Type Department Care Team [...] on filedocumented in this encounter Care Teams Mat Man Relationship Specialty Start Date End Date Name, MD Randal [address] [place] [address] PCP - General Family Medicine 04/11/16 documented as of this encounter
--- OUTSIDE RECORDS SUMMARY | 2025-08-30 15:30 | XMS_ITS | Patient Health Record ---
Author Organization [facility] Address [address] [place] [address] Care Team Providers Care Aviation Manager Name Role Phone Name Randal GALLEGOS Primary [...] GM As directed Orally Over the specified time.; Duration: 1 day(s) Active Social History Tobacco Use: [...] Problem Status W/U Status Risk Notes Problem Colon cancer screening (811129601) Colon cancer screening (Z12.11) Active confirmed Problem Change in bowel habit (32462820) Change in bowel habits (R19.4) Active confirmed Plan Of Treatment Future Test Test Name Order Date COLONOSCOPY 11/07/2017 Insurance Providers Payer Name Payer Address Payer Phone Subscriber Number Group Number Insured Name Patient Relationship to Insured Coverage Start Date Coverage End Date MEDICAID OF [employer] [address] [place] [id number] SVEN LEMUS Self - patient is the insured Medical (General) History Medical History History ICD Code back pain latent tuberculosis, treated Surgical History Surgery Date(Month/Year) eye surgery cholecystectomy
--- OUTSIDE RECORDS SUMMARY | 2025-08-30 15:30 | XMS_ITS | Encounter Summary ---
Author Organization [employer] Address [address] [facility] [address] [place] [address] Care Team Providers Care Sal[employer] Officer Name Role Phone Name, Randal GALLEGOS Primary Care Provider [phone] Reason for Visit * Reason Comments Med Refill Encounter Details Date Type Department Care Team ([facility] Contact Info) Description 08/27/2025 Refill [facility] MEDICINE [address] [place] [address] Name, MD Randal [address] [place] [address] Social History Tobacco Use Types Packs/Day Years [...] documented as of this encounter Care Teams Sal[employer] Officer Relationship Specialty Start Date End Date Name, MD Randal [address] [place] [address] PCP - General Family Medicine 04/11/16 documented as of this encounter
--- OUTSIDE RECORDS SUMMARY | 2025-08-30 15:30 | XMS_ITS | Clinical Summary ---
Author Organization [employer] Address [address] [facility] [address] [place] [address] Care Team Providers Care Clinical Specialty Rep Name Role Phone Name, Randal GALLEGOS Primary Care Provider [phone] Allergies No known active allergies Medications meclizine (Antivert) 25 MG tablet TAKE 1 TABLET BY MOUTH TWICE DAILY NEEDED FOR DIZZINESS 022 Active Diclofenac Sodium 1 % gel APPLY TO THE AFFECTED AREA(S) TOPICALLY TWICE DAILY 100 g 2 023 Active fluticasone (Flonase) 50 MCG/ACT nasal sprayIndicati ons:Post-nasa l drip Administer 1-2 sprays into each nostril in the morning. Shake gently. Before first use, prime pump. After use, clean tip and replace cap. 16 g 2 024 Active pantoprazole (ProtoNix) 20 MG EC tablet Take 1 tablet (20 mg) by mouth before breakfast. 90 tablet 2 025 Active hydrocortison e 2.5 % cream Apply by topical route 1-2 times per day after shower or bath from the neck down (not on face). 60 g 1 025 Active predniSONE (Deltasone) 10 MG tablet Take 1 tablet (10 mg) by mouth 4 times daily for 2 days, THEN 1 tablet (10 mg) 3 times daily for 2 days, THEN 1 tablet (10 mg) 2 times daily for 2 days, THEN 1 tablet (10 mg) Once per day for 2 days. 20 tablet 025 2024 Active cetirizine (ZyrTEC) 10 MG tabletIndicat ions:Urticari a Take 1 tablet (10 mg) by mouth Once per day. 30 tablet Active famotidine (Pepcid) 20 MG tablet Take 1 tablet (20 mg) by mouth Once per day. 30 tablet 025 2024 Active hydrOXYzine HCl (Atarax) 25 MG tabletIndicat ions:Urticari a Take 2 tablets (50 mg) by mouth if needed at bedtime for itching. 60 tablet 025 2024 Active carbamide peroxide (Debrox) 6.5 % otic solution ADMINISTER 5 TO 10 DROPS INTO THE AFFECTED EAR(S) TWICE A DAY FOR 4 DAYS 30 mL Active estradiol (Estrace) 0.1 MG/GM vaginal creamIndicati ons:Recurrent UTI Insert 1 g into the vagina 2 (two) times a week. 42.5 g Active Estrogens Conjugated (Premarin) 0.625 MG/GM creamIndicati ons:Recurrent UTI Insert 1 each into the vagina See administration instructions. 0.5 to 1 g once daily for 2 weeks, then reduce dose and/or frequency to lowest effective dose (usual maintenance dose: 0.5 to 1 g one to 3 times/week) 30 g 3 025 2024 Discontinued cetirizine (ZyrTEC) 10 MG tablet TAKE 1 TABLET (10 MG) BY MOUTH ONCE PER DAY. 90 tablet 1 025 2024 Discontinued(R eorder (will not trigger notification to Pharmacy)) Active Problems Problem Noted Date Diagnosed Date [...] Will refer if labs negative Fractured dental adventist with loss of materi al 10/23/2023 Dental [...] Encounters Date Type Department Care Team Description 08/27/2025 Refill [facility] MEDICINE [address] [place] [address] Randal Garcia MD 08/25/2025 Refill [facility] MED[facility] [address] [place] [address] Beth Beyer, LJ Recurrent UTI 08/25/2025 Refill [facility] MED[facility] [address] [place] [address] Randal Garcia MD 08/24/2025 2:30 PM EDT Office Visit [facility] [address] [place] [address] Magalis Lehman NP Urticaria (Primary Dx) 08/24/2025 Travel 07/23/2025 Telephone [facility] MED[facility]INE [address] [place] [address] Randal Garcia MD Nurse Triage 06/14/2025 Refill [facility] MED[facility] [address] [place] [address] Randal Garcia MD from Last 3 Months Immunizations Immunization Administration [...] your housing situation today? I have vashti sing 03/31/[address] you li [...] Sign Reading Time Taken Comments Blood Pressure 140/74 08/24/2025 2:40 PM EDT Pulse 88 08/24/2025 2:40 PM EDT Temperature 36.5 C (97.7 F) 08/24/2025 2:40 PM EDT Respiratory Rate 14 08/24/2025 2:40 PM EDT Oxygen Saturation 98% 08/24/2025 2:40 PM EDT Inhaled Oxygen Concentration - - Weight 55.2 kg (121 lb 9.6 oz) 08/24/2025 2:40 P M EDT Height 157.5 cm (5' 2 ) 08/24/2025 2:40 PM EDT Body Mass Index 22.24 08/24/2025 2:40 PM EDT Plan of Treatment Health Maintenance Due [...] exists Dental X-Ray: [facility] 11/08/2025 11/07/2024, 03/12 Mammogram 05/13/2026 05/13/2025, 04/19, 05/01/2023, Additional history exists Tobacco Screening 08/24/2026 08/24/2025 RSV Patients and Patients Aged 60 years [...] Procedure Name Priority Date/Time Associated Diagnosis Comments URINALYSIS, COMPLETE, WITH REFLEX TO CULTURE Routine 08/30/2025 1:44 PM EDT XR HAND 3+ VIEWS RIGHT Routine 6:10 [...] Relevant to Health Maintenance Results * (ABNORMAL) Urinalysis, Complete, with Reflex to Culture (08/30/2025 1:44 PM EDT) Color Urine Yellow [facility] Appearance Urine Clear [facility] PH 6.5 5.0 - 9.0 [facility] Glucose Urine UA Negative Negative mg/dL [facility] Urine Blood Moderate (2+)(A) Negative [facility] Specific [place] - Urine 1.010 1.005 - 1.025 [facility] Urine Protein Negative Neg-Trace mg/dL [facility] Urine Ketones Negative Negative mg/dL [facility] Nitrite Urine Negative Negative [facility] Leukocyte Esterase Urine Large (3+)(A) Negative [facility] RBC Urine 11-20(A) 0 - 2 /HPF [facility] Urine WBC >50(A) 0 - 5 /HPF [facility] Urine Squamous Epithelial Cell 0-2 0 - 2 /HPF [facility] Urine Bacteria None Seen None Seen [facility] Hyaline Casts, Urine 0-2 0 - 2 /LPF [facility] 08/30/2025 1:44 PM EDT 08/30/2025 1:48 PM EDT Narrative [facility] - 08/30/2025 1:57 PM EDT [id number], Clean Catch us Generic External Data Provider LAB URINE ORDERAB LES Final Result [facility] [address] [place] [phone] * XR Hand 3+ Views Right (05/31/2025 6:10 PM EDT) Anatomical Region Laterality Modality Upper Extremities, Hand Right Radiogra phic Imaging 05/31/2025 6:10 PM EDT Narrative 05/31/2025 6:12 PM EDT [address] [address] XRay Report Signed Patient: Yoly Bower MR#: [id number] 73 : 1955 Acct:[id number] Age/Sex: 70 / F ADM Date: 05/31/25 Loc: HO.ED Attending Dr: Ordering Physician: Gil Basurto Date of Service: 05/31/25 Procedure(s): XR hand RT min 3V Accession Number(s): [id number] cc: NameRandal MD; Gil Basurto CLINICAL HISTORY: [...] in OV> 05/31/251811 DD/ 09 TD/TT: 05/31/251809 Heavy Mobile Equipment Repairer: Procedure Note Donotuseinterpreter, Image - 05/31/[address] [place] [address] XRay Report Signed Patient: Yoly BowerMR#: [id number] 73 : 1955cct:[id number] Age/Sex: 70 / FADM Date: 05/31/25 Loc: HO.ED Attending Dr: Ordering Physician: Gil Basurto Date of Service: 05/31/25 Procedure(s): XR hand RT min 3V Accession Number(s): [id number] cc: Randal Garcia MD; Gil Basurto CLINICAL HISTORY: trauma r [...] in OV> 05/31/251811 DD/ 09 TD/TT: 05/31/251809 Heavy Mobile Equipment Repairer: [facility] External Provider IMG XR PROCEDURES Edited Result - Final * BI Mammogram Screening Tomosynthesis Bilateral (05/13/2025 10:30 AM EDT) Anatomical Region Laterality Modality Breast Bilateral Mammography 05/13/2025 10:3 0 AM EDT Narrative 05/30/2025 3:12 PM EDT [facility] [address] [place] [address] Mammography Report Signed Patient: Yoly Bower MR#: [id number] 73 : 1955 Acct:[id number] Age/Sex: 70 / F ADM Date: 05/13/25 Loc: HO.MAMMO Attending Dr: Randal Garcia MD Ordering Physician: Randal Garcia MD Results: 1Negative Date of Service: 05/13/25 Follow Up: 1 Year From Orig inal Mammogram Procedure(s): MM tomosynthesis screening BI Accession Number(s): [id number] cc: Randal Garcia MD EXAMINATION: MM SCREENING [...] 05/30/25 1508 DD/ 1030 TD/TT: 05/13/25 1050 Heavy Mobile Equipment Repairer: Procedure Note Donotuseinterpreter, Image - 05/30/2025 Jay[place] [facility] [address] [place] [address] Mammography Report Signed Patient: Yoly BowerMR#: [id number] 73 : [birth year]Acct:[id number] Age/Sex: 70 / FADM Date: 05/13/25 Loc: MAMMO Attending Dr: Randal Garcia MD Ordering Physician: Randal Garcia MDResults: 1Negative Date of Service: 05/13/25Follow Up: 1 Year From Orig inal Mammogram Procedure(s): MM tomosynthesis screening BI Accession Number(s): [id number] cc: Randal Garcia MD EXAMINATION: MM SCREENING [...] Anabelle Bullard DO 05/30/2025 03:08 PM EDT RP Dictated By: Anabelle Bullard DO Signed By: <Electronically signed by Anabelle Bullard DO in OV> 05/30/25 1508 DD/ 1030 TD/TT: 05/13/25 1050 Heavy Mobile Equipment Repairer: Randal Garcia MD IMG BI PROCEDURES Edited Result - Final * Hm Colonoscopy (08/31/2023) Colonoscopy Normal Normal Teri Martin MD HEALTH MAINTENANCE Final Result from Last 3 Months or Most Recently Relevant to Health Maintenance [place] [address] [place] [address] STANDARD [facility] [employer] (HMO D-SNP) [facility] Care Teams Clinical Specialty Rep Relationship Specialty Start Date End Date Name, MD Randal [address] [place] [address] PCP - General Family Medicine 04/11/16
--- OUTSIDE RECORDS SUMMARY | 2025-08-30 15:30 | XMS_ITS | Encounter Summary ---
Demographics Address [address] [place] [address] [place] [address] Home Phone Work Phone Mobile Phone Email Address Preferred Language es Marital Status Hinduism Affiliation Unknown Race Other Race Ethnic Group Unknown Author Organization [employer] Address [address] [facility] [address] [place] [address] Care Team Providers Care Operations Administrator Name Role Phone Name, Randal GALLEGOS Primary Care Provider [phone] Encounter Details Date Type Department Care Team ([facility] st Contact Info) Description 03/21/2023 Abstract [facility] MEDICINE [address] [place], [place] [phone] Name, MD Randal [address] [place], [place] [phone] Social History Tobacco Use Types Packs/Day Years [...] on filedocumented in this encounter Care Teams Operations Administrator Relationship Specialty Start Date End Date Name, MD Randal [address] [place], [place] [phone] PCP - General Family Medicine 04/11/16 documented as of this encounter
--- OUTSIDE RECORDS SUMMARY | 2025-08-30 15:30 | XMS_ITS | Clinical Summary ---
Author Organization [employer] [facility] Address [address] [place] [address] Care Team Providers Care Optical Glass Sawyer Name Role Phone Name, Randal GALLEGOS Primary Care Provider [phone] Medical History Medical History Date Comments Hyperlipidemia [...] 2006 Zoster Vaccines (1 of 2) 2006 Depression Screening 11/19/2024 COVID-19 Vaccine ( - 2023-2 5 season) 2025 Influenza Vaccine [...] age to complete this topic Care Teams Optical Glass Sawyer Relationship Specialty Start Date End Date Name, MD Randal [address] [place], [place] PCP - General Internal Medicine 05/30/22
--- OUTSIDE RECORDS SUMMARY | 2025-08-30 15:30 | XMS_ITS | Encounter Summary ---
Author Organization [employer] Address [address] [facility] [address] [place] [address] Care Team Providers Care Assistant Project Manager Name Role Phone Name, Randal GALLEGOS Primary Care Provider [phone] Reason for Visit * Reason Comments Med Change Request Encounter Details Date Type Department Care Team ([facility] Contact Info) Description 08/25/[address] [facility] MEDICINE [address], [place] [id number] Beth Beyer CNM [address] [place] [address] Recurrent UTI Social History Tobacco Use Types Packs/Day Years [...] documented as of this encounter Visit Diagnoses Diagnosis Recurrent UTI Urinary tract infection, site not specified documented in this encounter Additional Health Concerns Assessment Noted Time PHQ-9 Depression Total Score: 0 03/31/20 24 9:19 AM EDT documented as of this encounter Care Teams Assistant Project Manager Relationship Specialty Start Date End Date Name, MD Randal [address] [place] [address] PCP - General Family Medicine 04/11/16 documented as of this encounter
--- OUTSIDE RECORDS SUMMARY | 2025-08-30 15:30 | XMS_ITS | Encounter Summary ---
Demographics Address [address] [place] [address] [place] [address] Home Phone Work Phone Mobile Phone Email Address Preferred Language es Marital Status Orthodoxy Affiliation Unknown Race Other Race Ethnic Group Unknown Author Organization [employer] Address [address] [facility] [address] [place] [address] Care Team Providers Care Textiles Printer Name Role Phone Name, Randal GALLEGOS Primary Care Provider [phone] Encounter Details Date Type Department Care Team ([facility] st Contact Info) Description 04/12/2023 Abstract [facility] MEDICINE [address] [place] [address] Name, MD Randal [address] [place] [address] Social History Tobacco Use Types Packs/Day Years [...] on filedocumented in this encounter Care Teams Textiles Printer Relationship Specialty Start Date End Date Name, MD Randal [address] [place] [id number] PCP - General Family Medicine 04/11/16 documented as of this encounter
[2025-08-30 16:40] VITALS: BP 125/67; PULSE 70; RESP 15; TEMP 36.8; O2SAT 97
[2025-08-30 18:18] VITALS: BP 125/67; PULSE 70; RESP 15; TEMP 36.8; O2SAT 97
== END 2025-08-30 18:19 | disposition home or self-care (01) ==
PROVIDERS: Physician Assistant Medical; Emergency Provider Student in an Organized Health Care Education/Training Program; PCP Internal Medicine Geriatric Medicine
DX: N39.0 Urinary tract infection, site not specified (principal); R30.0 Dysuria
CPT/HCPCS: 81001; 87086; 99283; 99284